=== PATIENT | female | born 2000 | race Caucasian/White ===

== ENCOUNTER 2020-06-25 05:36 | Emergency (ER) | payer BC ==
--- NOTE | 2020-06-25 05:59 | EDM.PDOC ---
ED HPI GENERAL MEDICAL PROBLEM - General Chief Complaint: Respiratory Problem Stated Complaint: SOB/CONGESTION/FEVER Time Seen by Provider: 06/25/20 05:58 Source of Information: Reports: Patient History Limitations: Reports: No Limitations - History of Present Illness INITIAL COMMENTS - FREE TEXT/NARRATIVE: -20 year-old female presents to the ED with a history of sore throat fever and chills starting 9 days ago. Has developed a paroxysmal mildly productive cough. Subjective dyspnea. O2 sats 100% on the monitor. Unable to sleep due to paroxysmal cough and subjective dyspnea overnight. Loss of appetite. Associated mild diarrhea. Loss of sense of taste and smell with nasal congestion. Currently she works as an employee at the [email or web address]. Onset: Sudden Onset Date: 06/23/20 Duration: Day(s):, Constant, Getting Worse Location: Reports: Chest (Accessible minimally productive cough.), Generalized (Neurolyse myalgia and headache.), Other (Mild diarrhea usually 2 times daily. Loss of appetite sense of taste and sense of smell.) Quality: Reports: Ache (Lysed myalgia improved with) Severity: Moderate (Motrin.) Improves with: Reports: Medication (And helps take away fever and body ache.) Worsens with: Reports: Other Context: Denies: Activity, Exercise (Activity.), Lifting, Sick Contact, Trauma, Other Associated Symptoms: Reports: Cough, Fever/Chills, Headaches, Loss of Appetite, Malaise, Shortness of Breath, Weakness, Other ( usually twice daily yellowish in color). Denies: No Other Symptoms, Chest Pain, Diaphoresis, Nausea/Vomiting, Rash, Seizure, Syncope Treatments TAX REPRESENTATIVE: Reports: NSAIDS (Primarily Motrin 600 mg every 6 hours) - Related Data Allergies Allergy/AdvReac Type Severity Reaction Status Date / Time No Known Allergies Allergy Verified 06/25/20 05:47 Home Meds: Home Meds Amphetamine/Dextroamphetamine [Adderall] 10 mg PO DAILY 06/25/20 [History] Hydrocodone/Chlorphen P-Stirex [Hydrocodone-Chlorphen ER Susp] 5 ml PO Q12H PRN #60 ml 06/25/20 [Rx] Ondansetron [Zofran] 4 mg BUCCAL Q6H PRN #8 tab 06/25/20 [Rx] dexAMETHasone [Decadron] 4 mg PO BID #10 tablet 06/25/20 [Rx] Past Medical History - Past Health History Medical/Surgical History: Denies Medical/Surgical History - Past Surgical History HEENT Surgical History: Reports: Tonsillectomy Social & Family History - Tobacco Use Tobacco Use Status *Q: Never Tobacco User Second Hand Smoke Exposure: No - Caffeine Use Caffeine Use: Reports: None - Recreational Drug Use Recreational Drug Use: No - Living Situation & Occupation Living situation: Reports: Single Occupation: Employed ED ROS GENERAL - Review of Systems Review Of Systems: See Below Constitutional: Reports: Fever, Chills, Malaise, Weakness, Fatigue, Decreased Appetite HEENT: Reports: Throat Pain, Other (Nasal congestion.) Respiratory: Reports: Shortness of Breath, Cough (Minimally productive). Denies: Wheezing, Pleuritic Chest Pain, Sputum, Hemoptysis ( cough.), Other Cardiovascular: Reports: Dyspnea on Exertion, Other. Denies: No Symptoms, Chest Pain, Blood Pressure Problem, Claudication Endocrine: Reports: Fatigue (Knee at rest) GI/Abdominal: Reports: Diarrhea (Usually 2 loose diarrhea stools per day. Yellow in color no blood), Decreased Appetite. Denies: Nausea, Stool Incontinence, Vomiting : Reports: No Symptoms Musculoskeletal: Reports: Muscle Pain Skin: Reports: No Symptoms (Generalized myalgia.) Neurological: Reports: Dizziness, Headache Psychiatric: Reports: Other (She has a history of attention deficit disorder with hyperactivity and takes Adderall daily.) Hematologic/Lymphatic: Reports: No Symptoms Immunologic: Reports: No Symptoms ED EXAM, GENERAL - Physical Exam Exam: See Below Exam Limited By: No Limitations General Appearance: Alert, WD/WN, Mild Distress, Other (Which is 36.8 heart rate 91 and sinus respiratory 16 with O2 sats of 99 to 100% room air BP 09/27/1977.) Eye Exam: Bilateral Eye: Normal Inspection, PERRL Ears: Normal TMs Nose: Nasal Drainage, Clear Rhinorrhea Throat/Mouth: Other (Diffuse erythema posterior oropharynx. Tonsils are absent.) Head: Atraumatic, Normocephalic Neck: Normal Inspection, Supple, Non-Tender, Full Range of Motion. No: Carotid Bruit, Lymphadenopathy (L), Lymphadenopathy (R) Respiratory/Chest: Lungs Clear, Normal Breath Sounds, Respiratory Distress (Mild to moderate tachypnea.), Rhonchi (Mild upper lobes anteriorly.), Other (Recurrent paroxysmal). No: Wheezing ( mildly productive sounding cough.) Cardiovascular: Normal Peripheral Pulses, Regular Rate, Rhythm, No Edema, No Gallop, No Murmur, No Rub Peripheral Pulses: 3+: Carotid (L), Carotid (R), Posterior Tibial (L), Posterior Tibial (R), Dorsalis Pedis (L), Dorsalis Pedis (R) GI/Abdominal: Normal Bowel Sounds, Soft, Non-Tender, No Organomegaly, No Abnormal Bruit, No Mass, Pelvis Stable Back Exam: Normal Inspection, Full Range of Motion. No: CVA Tenderness (L), CVA Tenderness (R) Extremities: Normal Inspection, Normal Range of Motion, Non-Tender, No Pedal Edema Neurological: Alert, Oriented, CN II-XII Intact, Normal Cognition Psychiatric: Normal Affect, Normal Mood Skin Exam: Warm, Dry, Intact, Normal Color, No Rash Course - Vital Signs Last Recorded V/S: Last Vital Signs Temp 36.8 C 06/25/20 05:41 Pulse 91 06/25/20 05:41 Resp 16 06/25/20 05:41 BP 129/78 06/25/20 05:41 Pulse Ox 99 06/25/20 05:41 - Orders/Labs/Meds Orders: Active Orders 24 hr Category Date Time Status Chest 1V Frontal [CR] Stat Exams 06/25/20 06:07 Taken CBC WITH AUTO DIFF [HEME] Stat Lab 06/25/20 06:30 Results CORONAVIRUS COVID-19 PCR PHL Stat Lab 06/25/20 06:30 Received Dextrose 5%-Lactated Ringers 1,000 ml Med 06/25/20 06:15 Active IV ASDIRECTED Medication Orders Dextrose/Lactated Ringer's (Dextrose 5%-Lactated Ringers) 1,000 mls @ 999 mls/hr IV ASDIRECTED ANDRAE Last Admin: 06/25/20 06:45 Dose: 999 mls/hr Documented by: RAFAELA Labs: Laboratory Tests 06/25/20 06/25/20 06/25/20 Range/Units 06:30 06:30 06:30 WBC 12.80 H (3.98-10.04) K/mm3 RBC 4.94 (3.98-5.22) M/mm3 Hgb 14.1 (11.2-15.7) gm/dl Hct 43.5 (34.1-44.9) % MCV 88.1 (79.4-94.8) fl MCH 28.5 (25.6-32.2) pg MCHC 32.4 (32.2-35.5) g/dl RDW Std Deviation 42.0 (36.4-46.3) fL Plt Count 333 (182-369) K/mm3 MPV 9.8 (9.4-12.3) fl Neut % (Auto) 55.5 (34.0-71.1) % Lymph % (Auto) 35.3 (19.3-51.7) % [place] % (Auto) 7.7 (4.7-12.5) % Eos % (Auto) 0.7 (0.7-5.8) Baso % (Auto) 0.5 (0.1-1.2) % Neut # (Auto) 7.11 H (1.56-6.13) K/mm3 Lymph # (Auto) 4.52 H (1.18-3.74) K/mm3 [place] # (Auto) 0.98 H (0.24-0.36) K/mm3 Eos # (Auto) 0.09 (0.04-0.36) K/mm3 Baso # (Auto) 0.06 (0.01-0.08) K/mm3 Sodium 143 (136-145) mEq/L Potassium 3.6 (3.5-5.1) mEq/L Chloride 109 H (98-107) mEq/L Carbon Dioxide 18 L (21-32) mEq/L Anion Gap 19.6 H (5-15) BUN 7 (7-18) mg/dL Creatinine 0.8 (0.55-1.02) mg/dL Est Cr Clr Drug Dosing 103.26 mL/min Estimated GFR (MDRD) > 60 (>60) mL/min BUN/Creatinine Ratio 8.8 L (14-18) Glucose 88 (74-106) mg/dL Calcium 8.9 (8.5-10.1) mg/dL Ferritin 42 (8-252) ng/ml Total Bilirubin 0.3 (0.2-1.0) mg/dL AST 14 L (15-37) U/L ALT 27 (14-59) U/L Alkaline Phosphatase 83 (46-116) U/L Lactate Dehydrogenase 140 (81-234) U/L C-Reactive Protein 0.3 (<1.0) mg/dL Total Protein 7.7 (6.4-8.2) g/dl Albumin 4.0 (3.4-5.0) g/dl Globulin 3.7 gm/dL Albumin/Globulin Ratio 1.1 (1-2) Meds: Medications Generic Name Dose Route Start Last Admin Trade Name Freq PRN Reason Stop Dose Admin Dextrose/Lactated Ringer's 1,000 mls @ 999 mls/hr 06/25/20 06:15 06/25/20 06:45 Dextrose 5%-Lactated Ringers IV 999 mls/hr ASDIRECTED ANDRAE Administration Discontinued Medications Generic Name Dose Route Start Last Admin Trade Name Freq PRN Reason Stop Dose Admin Dexamethasone 6 mg 06/25/20 07:47 Dexamethasone IVPUSH 06/25/20 07:48 ONETIME ONE Ondansetron HCl 4 mg 06/25/20 06:37 06/25/20 06:45 Zofran IVPUSH 06/25/20 06:38 4 mg ONETIME ONE Administration - Radiology Interpretation Free Text/Narrative:: 20-year-old female presents to the ED with signs and symptoms of COVID-19 illness with acute onset of nasal congestion, sore throat and loss of taste and sense of smell being 8-9 days ago. Continues to have increasing subjective dyspnea and paroxysmal, very minimally productive cough. Associated loss of appetite and mild diarrhea. Intermittent fever, chills and body aches and headache. Likely that she has COVID-19 illness. Chest x-ray will be performed. IV will be D5 LR at open. Labs ordered as well as a serum ferritin and LDH level and she will have 1 view chest x-ray completed. Coronavirus screen to public health. - Re-Assessments/Exams Free Text/Narrative Re-Assessment/Exam: 06/25/20 06:43 chest x-ray done portably reveals a early infiltrate in the right lower lobe suggestive of developing viral pneumonitis. Normal cardiac silhouette. Free Text/Narrative Re-Assessment/Exam: 06/25/20 06:54 White count is 12.8 with auto differential revealing 55% neutrophils and 35% lymphocytes. Hemoglobin is 14.1 with hematocrit of 43.5. Platelet count normal at 333,000. 06/25/20 07:40 Sodium is 143 with a potassium of 3.6. Chloride 109 with a bicarb of 18 slightly low. Anion gap elevated at 19.6. BUN is 7 with a creatinine of 0.8. GFR is greater than 60. Glucose 88 with a calcium of 8.9. Serum ferritin was normal at 42 total bilirubin 0.3 AST 14 ALT 27. LDH 140. C- reactive protein 0.3 total protein 7.7 with an albumin fraction of 4.0. She will be discharged on dexamethasone 4 mg twice daily for the next 5 days. Cough syrup to be Tussionex 5 mils every 12 hours as needed for cough relief primarily at bedtime. Zofran 4 mg sublingual every 4-6 hours as needed for nausea relief so hopefully should be able to eat. Departure - Departure Time of Disposition: 07:45 Disposition: Home, Self-Care 01 Condition: Fair Clinical Impression: COVID-19 - Discharge Information *PRESCRIPTION DRUG MONITORING PROGRAM REVIEWED*: Not Applicable *COPY OF PRESCRIPTION DRUG MONITORING REPORT IN PATIENT JOO: Not Applicable Prescriptions: dexAMETHasone [Decadron] 4 mg PO BID #10 tablet Hydrocodone/Chlorphen P-Stirex [Hydrocodone-Chlorphen ER Susp] 5 ml PO Q12H PRN #60 ml PRN Reason: cough relief Ondansetron [Zofran] 4 mg BUCCAL Q6H PRN #8 tab PRN Reason: nausea or vomiting Instructions: COVID-19 Frequently Asked Questions, COVID-19: How to Protect Yourself and Others - CDC, Prevent the Spread of COVID-19 if You Are Sick - [facility] Referrals: Sharon Lujan NP [Primary Care Provider] - Forms: ED Department Discharge, ED Return to Work/School Form Additional Instructions: Evaluation in the emergency room this morning in regards to development of upper respiratory tract symptoms with associated sore throat, nasal congestion, loss of sense of taste and smell. Development of paroxysmal minimally productive cough with loss of appetite and mild diarrhea are all symptoms of the COVID-19 illness. COVID-19 screen has been carried out and sent to public health and results will likely be available to you tomorrow. Chest x-ray done this morning did not show any signs of pneumonia at this time. You were treated with intravenous fluids to make sure you were hydrated. You were given Zofran 4 mg intravenously for nausea relief. Dexamethasone 6 mg IV at time of discharge,. Treatment at home is to self quarantine for the next 5 days presuming you have already been ill for 9 days. You are considered contagious to others for at minimum of 10 days after onset of symptoms. Suggest off work until July 01. May use Zofran under the tongue every 4-6 hours if necessary for nausea relief. Cough syrup is to be Tussionex 5 mils every 12 hours as necessary for relief of severe cough. Ideally it should be taken about an hour before going to bed as it takes about an hour to work. Continue Motrin 600 mg every 6 hours if necessary for headache, body ache and/or fever.Suggest no dairy products and no apple or grape juice until diarrhea has resolved. Plenty of fluids such as gatorade/powerade to maintain hydration. Dexamethasone tablet 4mg twice daily for 5 days starting at supper time tonight. ist dose was given IV in the ED. results of your COVID-19 test will tentatively be back tomorrow and you will receive a phone call usually from the emergency department as well as public health. Sepsis Event Note (ED) - Evaluation Sepsis Screening Result: No Definite Risk - Focused Exam Vital Signs: Vital Signs Temp Pulse Resp BP Pulse Ox 06/25/20 05:41 36.8 C 91 16 129/78 99 - My Orders Last 24 Hours: My Active Orders 06/25/20 06:07 Chest 1V Frontal [CR] Stat 06/25/20 06:15 Dextrose 5%-Lactated Ringers 1,000 ml IV ASDIRECTED 06/25/20 06:30 CBC WITH AUTO DIFF [HEME] Stat CORONAVIRUS COVID-19 PCR PHL Stat - Assessment/Plan Last 24 Hours: My Active Orders 06/25/20 06:07 Chest 1V Frontal [CR] Stat 06/25/20 06:15 Dextrose 5%-Lactated Ringers 1,000 ml IV ASDIRECTED 06/25/20 06:30 CBC WITH AUTO DIFF [HEME] Stat CORONAVIRUS COVID-19 PCR PHL Stat
[2020-06-25] MEDS ORDERED: Dextrose 5%-Lactated Ringers 1,000 ML IV SCH (06:15)
[2020-06-25] MEDS ORDERED: Ondansetron 4 MG/2 ML SDV IVPUSH ONE (06:37)
[2020-06-25] MEDS ORDERED: Dexamethasone 10 MG/ML SDV IVPUSH ONE (07:47)
--- NOTE | 2020-06-27 15:12 | CR ---
PROCEDURE INFORMATION: Exam: XR Chest, 1 View Exam date and time: 06/25/2020 6:02 AM Age: 20 years old Clinical indication: Chest pain; Other: Proxymal TECHNIQUE: Imaging protocol: XR of the chest Views: 1 view. COMPARISON: No relevant prior studies available. FINDINGS: Lungs: Unremarkable. No consolidation. Pleural space: Unremarkable. No pleural effusion. No pneumothorax. Heart/Mediastinum: Unremarkable. No cardiomegaly. Bones/joints: Unremarkable. IMPRESSION: No acute findings. Thank you for allowing us to participate in the care of your patient. Dictated and Authenticated by: Ant Corea MD 06/25/2020 7:41 AM Central Time ([place] & [place]) NATALY
== END 2020-06-25 08:05 | disposition home or self-care (01) ==
LOC: JD.ED 05:36
DX: U07.1 COVID-19 (principal); R79.89 Other specified abnormal findings of blood chemistry; Z79.899 Other long term (current) drug therapy
CPT/HCPCS: 36415; 71045; 80053; 82728; 83615; 85025; 86140; 87635; 96374; 96375; 99285; J1100; J2405; J7121; 99284; U0002

== ENCOUNTER 2021-07-01 17:42 | Inpatient (IN) | payer BC ==
[2021-07-01] MEDS ORDERED: Sodium Chloride 0.9% 10 ML Syringe FLUSH PRN (18:13)
[2021-07-01] MEDS ORDERED: Sodium Chloride 0.9% 1,000 ML IV ONE (18:13)
[2021-07-01] MEDS ORDERED: Ondansetron 4 MG/2 ML SDV IVPUSH ONE (18:13)
[2021-07-01] MEDS ORDERED: HYDROmorphone 0.5 MG/0.5 ML Syringe IVPUSH ONE ×2 (18:13→21:05)
--- NOTE | 2021-07-01 18:22 | EDM.PDOC ---
ED HPI GENERAL MEDICAL PROBLEM - General Chief Complaint: Abdominal Pain Stated Complaint: ABDOMINAL PAIN Time Seen by Provider: 07/01/21 17:55 Source of Information: Reports: Patient History Limitations: Reports: No Limitations - History of Present Illness INITIAL COMMENTS - FREE TEXT/NARRATIVE: 21-year-old female presents the emergency department today with complaints of right flank pain. Patient states that approximately 2 weeks ago she was seen at the clinic and treated for UTI. She states symptoms initially resolved however have since returned over the course of the past week. She states urinary frequency and burning with voiding. She states that flank pain started about a week ago but has progressively worsened. States that the pain radiates into her right groin. She states she has had subjective fever, chills, nausea without vomiting and has not had any diarrhea. She denies any other significant past medical history. Right Middle Abdomen Pain Score (Numeric/FACES): 10 - Related Data Allergies Allergy/AdvReac Type Severity Reaction Status Date / Time No Known Allergies Allergy Verified 07/01/21 18:05 Home Meds: Home Meds Etonogestrel [Nexplanon] 68 mg IMPLANT ASDIRECTED 07/01/21 [History] Amphetamine/Dextroamphetamine [Adderall XR] 30 mg PO BID 07/02/21 [History] Past Medical History - Past Health History Medical/Surgical History: Denies Medical/Surgical History - Past Surgical History HEENT Surgical History: Reports: Tonsillectomy Social & Family History - Tobacco Use Tobacco Use Status *Q: Never Tobacco User - Caffeine Use Caffeine Use: Reports: None - Living Situation & Occupation Living situation: Reports: Single Occupation: Employed ED ROS GENERAL - Review of Systems Review Of Systems: Comprehensive ROS is negative, except as noted in HPI. ED EXAM, RENAL/ - Physical Exam Exam: See Below Exam Limited By: No Limitations General Appearance: Alert, WD/WN, Moderate Distress Ears: Normal External Exam, Hearing Grossly Normal Nose: Normal Inspection Throat/Mouth: Normal Inspection, Normal Lips, Normal Voice, No Airway Compromise Head: Atraumatic Neck: Normal Inspection, Supple Respiratory/Chest: No Respiratory Distress, Lungs Clear, Normal Breath Sounds, No Accessory Muscle Use, Chest Non-Tender Cardiovascular: Normal Peripheral Pulses, Regular Rate, Rhythm, No Edema, No Murmur GI/Abdominal: Normal Bowel Sounds, Soft, No Distention. No: Tender (Right upper and lower quadrant tenderness) (Female) Exam: Deferred Rectal (Female) Exam: Deferred Back Exam: Normal Inspection Extremities: Normal Inspection Neurological: Alert, Oriented, Normal Cognition Psychiatric: Normal Affect, Normal Mood Skin Exam: Warm, Dry, Intact, Normal Color, No Rash Lymphatic: No Adenopathy Course - Vital Signs Text/Narrative:: As stated above patient presents with right flank pain with radiation into her right groin. Recent UTI treated with antibiotics. Upon exam, patient is hunched over on the right side in the position. When she straightens onto her back she is splinting her right side of her abdomen. She does have right CVA tenderness on exam. Will obtain lab studies to include a urinalysis with micro and culture if indicated, urine , CBC, CMP, magnesium, C-reactive protein. Once I have the results of the urine test back, if negative will do a CT of the abdomen and pelvis without contrast to rule out kidney stone. Last Recorded V/S: Last Vital Signs Temp 98.1 F 07/02/21 21:06 Pulse 67 07/02/21 21:06 Resp 16 07/02/21 21:06 BP 117/70 07/02/21 21:06 Pulse Ox 100 07/02/21 21:06 - Orders/Labs/Meds Orders: Active Orders 24 hr Category Date Time Status Admission Status [Patient Status] [ADT] Routine ADT 07/02/21 11:06 Active Activity as Tolerated [RC] BID Care 07/01/21 22:34 Active Regular Diet [DIET] Diet 07/02/21 Breakfast Active Acetaminophen/HYDROcodone [[place] 325-10 MG] Med 07/02/21 10:16 Active 1 tab PO Q4H PRN Ketorolac [Toradol] Med 07/01/21 22:33 Active 30 mg IVPUSH Q6H PRN Ondansetron [Zofran] Med 07/01/21 22:32 Active 4 mg IVPUSH Q6H PRN Code Status [Resuscitation Status] Routine Resus Stat 07/01/21 22:34 Ordered Medication Orders Hydrocodone Bitart/Acetaminophen (Acetaminophen/Hydrocodone 325-10 Mg Tab) 1 tab PO Q4H PRN PRN Reason: Abdominal Pain Last Admin: 07/02/21 21:45 Dose: 1 tab Documented by: Admin: 07/02/21 16:05 Dose: 1 tab Documented by: Admin: 07/02/21 10:34 Dose: 1 tab Documented by: CROW Ceftriaxone Sodium 1 gm/ (Sodium Chloride) 100 mls @ 200 mls/hr IV Q24H [facility] Last Admin: 07/02/21 18:45 Dose: 200 mls/hr Documented by: Infusion: 07/01/21 20:12 Dose: 200 mls/hr Documented by: Admin: 07/01/21 19:42 Dose: 200 mls/hr Documented by: REGINA Sodium Chloride (Normal Saline) 1,000 mls @ 75 mls/hr IV ASDIRECTED [facility] Last Admin: 07/02/21 17:36 Dose: 75 mls/hr Documented by: SANDRA Ketorolac Tromethamine (Ketorolac 30 Mg/Ml Sdv) 30 mg IVPUSH Q6H PRN PRN Reason: Pain Stop: 07/06/21 22:34 Last Admin: 07/02/21 18:43 Dose: 30 mg Documented by: Admin: 07/02/21 12:14 Dose: 30 mg Documented by: Admin: 07/02/21 05:42 Dose: 30 mg Documented by: Admin: 07/01/21 22:47 Dose: 30 mg Documented by: CHEIKH Ondansetron HCl (Ondansetron 4 Mg/2 Ml Sdv) 4 mg IVPUSH Q6H PRN PRN Reason: Nausea/Vomiting Last Admin: 07/02/21 17:00 Dose: 4 mg Documented by: Admin: 07/02/21 09:25 Dose: 4 mg Documented by: Admin: 07/02/21 01:44 Dose: 4 mg Documented by: ANNABELLE Sodium Chloride (Sodium Chloride 0.9% 10 Ml Syringe) 10 ml FLUSH ASDIRECTED PRN PRN Reason: Keep Vein Open Last Admin: 07/01/21 19:43 Dose: 10 ml Documented by: REGINA Labs: Laboratory Tests 07/01/21 07/01/21 07/01/21 Range/Units 18:20 18:20 18:25 WBC 19.58 H (3.98-10.04) K/mm3 RBC 5.48 H (3.98-5.22) M/mm3 Hgb 15.7 D (11.2-15.7) gm/dl Hct 48.8 H (34.1-44.9) % MCV 89.1 (79.4-94.8) fl MCH 28.6 (25.6-32.2) pg MCHC 32.2 (32.2-35.5) g/dl RDW Std Deviation 44.0 (36.4-46.3) fL Plt Count 333 (182-369) K/mm3 MPV 9.8 (9.4-12.3) fl Neut % (Auto) 77.5 H (34.0-71.1) % Lymph % (Auto) 14.7 L (19.3-51.7) % [place] % (Auto) 7.0 (4.7-12.5) % Eos % (Auto) 0.1 L (0.7-5.8) Baso % (Auto) 0.3 (0.1-1.2) % Neut # (Auto) 15.18 H (1.56-6.13) K/mm3 Lymph # (Auto) 2.87 (1.18-3.74) K/mm3 [place] # (Auto) 1.38 H (0.24-0.36) K/mm3 Eos # (Auto) 0.02 L (0.04-0.36) K/mm3 Baso # (Auto) 0.05 (0.01-0.08) K/mm3 Sodium (136-145) mEq/L Potassium (3.5-5.1) mEq/L Chloride (98-107) mEq/L Carbon Dioxide (21-32) mEq/L Anion Gap (5-15) BUN (7-18) mg/dL Creatinine (0.55-1.02) mg/dL Est Cr Clr Drug Dosing Estimated GFR (MDRD) (>60) mL/min BUN/Creatinine Ratio (14-18) Glucose (70-99) mg/dL Calcium (8.5-10.1) mg/dL Magnesium (1.8-2.4) mg/dL Total Bilirubin (0.2-1.0) mg/dL AST (15-37) U/L ALT (14-59) U/L Alkaline Phosphatase (46-116) U/L C-Reactive Protein (<1.0) mg/dL Total Protein (6.4-8.2) g/dl Albumin (3.4-5.0) g/dl Globulin gm/dL Albumin/Globulin Ratio (1-2) Procalcitonin ng/mL Urine Color Yellow (Yellow) Urine Appearance Cloudy H (Clear) Urine pH 7.0 (5.0-8.0) Ur Specific [place] 1.025 (1.005-1.030) Urine Protein 3+ H (Negative) Urine Glucose (UA) Negative (Negative) Urine Ketones Negative (Negative) Urine Occult Blood 3+ H (Negative) Urine Nitrite Negative (Negative) Urine Bilirubin Negative (Negative) Urine Urobilinogen 0.2 (0.2-1.0) Ur Leukocyte Esterase 2+ H (Negative) Urine RBC 40-50 H (0-5) /hpf Urine WBC >100 H (0-5) /hpf Ur Squamous Epith Cells 0-5 (0-5) /hpf Urine Bacteria Moderate H (FEW) /hpf Urine Mucus Few (FEW) /hpf Urine HCG, Qual Negative (NEGATIVE) SARS-CoV-2 RNA (NATHALIE) (NEGATIVE) 07/01/21 07/01/21 07/02/21 Range/Units 18:25 19:55 06:03 WBC 9.12 (3.98-10.04) K/mm3 RBC 4.83 (3.98-5.22) M/mm3 Hgb 14.0 D (11.2-15.7) gm/dl Hct 43.4 (34.1-44.9) % MCV 89.9 (79.4-94.8) fl MCH 29.0 (25.6-32.2) pg MCHC 32.3 (32.2-35.5) g/dl RDW Std Deviation 44.3 (36.4-46.3) fL Plt Count 292 (182-369) K/mm3 MPV 9.8 (9.4-12.3) fl Neut % (Auto) 61.0 (34.0-71.1) % Lymph % (Auto) 28.3 (19.3-51.7) % [place] % (Auto) 9.5 (4.7-12.5) % Eos % (Auto) 0.7 (0.7-5.8) Baso % (Auto) 0.3 (0.1-1.2) % Neut # (Auto) 5.56 (1.56-6.13) K/mm3 Lymph # (Auto) 2.58 (1.18-3.74) K/mm3 [place] # (Auto) 0.87 H (0.24-0.36) K/mm3 Eos # (Auto) 0.06 (0.04-0.36) K/mm3 Baso # (Auto) 0.03 (0.01-0.08) K/mm3 Sodium 137 (136-145) mEq/L Potassium 4.2 (3.5-5.1) mEq/L Chloride 101 (98-107) mEq/L Carbon Dioxide 26 (21-32) mEq/L Anion Gap 14.2 (5-15) BUN 8 (7-18) mg/dL Creatinine 0.8 (0.55-1.02) mg/dL Est Cr Clr Drug Dosing TNP Estimated GFR (MDRD) > 60 (>60) mL/min BUN/Creatinine Ratio 10.0 L (14-18) Glucose 92 (70-99) mg/dL Calcium 9.6 (8.5-10.1) mg/dL Magnesium 2.0 (1.8-2.4) mg/dL Total Bilirubin 0.4 (0.2-1.0) mg/dL AST 20 (15-37) U/L ALT 27 (14-59) U/L Alkaline Phosphatase 80 (46-116) U/L C-Reactive Protein <0.2 (<1.0) mg/dL Total Protein 8.6 H (6.4-8.2) g/dl Albumin 4.7 (3.4-5.0) g/dl Globulin 3.9 gm/dL Albumin/Globulin Ratio 1.2 (1-2) Procalcitonin ng/mL Urine Color (Yellow) Urine Appearance (Clear) Urine pH (5.0-8.0) Ur Specific [place] (1.005-1.030) Urine Protein (Negative) Urine Glucose (UA) (Negative) Urine Ketones (Negative) Urine Occult Blood (Negative) Urine Nitrite (Negative) Urine Bilirubin (Negative) Urine Urobilinogen (0.2-1.0) Ur Leukocyte Esterase (Negative) Urine RBC (0-5) /hpf Urine WBC (0-5) /hpf Ur Squamous Epith Cells (0-5) /hpf Urine Bacteria (FEW) /hpf Urine Mucus (FEW) /hpf Urine HCG, Qual (NEGATIVE) SARS-CoV-2 RNA (NATHALIE) Negative (NEGATIVE) 07/02/21 07/02/21 Range/Units 06:03 06:03 WBC (3.98-10.04) K/mm3 RBC (3.98-5.22) M/mm3 Hgb (11.2-15.7) gm/dl Hct (34.1-44.9) % MCV (79.4-94.8) fl MCH (25.6-32.2) pg MCHC (32.2-35.5) g/dl RDW Std Deviation (36.4-46.3) fL Plt Count (182-369) K/mm3 MPV (9.4-12.3) fl Neut % (Auto) (34.0-71.1) % Lymph % (Auto) (19.3-51.7) % [place] % (Auto) (4.7-12.5) % Eos % (Auto) (0.7-5.8) Baso % (Auto) (0.1-1.2) % Neut # (Auto) (1.56-6.13) K/mm3 Lymph # (Auto) (1.18-3.74) K/mm3 [place] # (Auto) (0.24-0.36) K/mm3 Eos # (Auto) (0.04-0.36) K/mm3 Baso # (Auto) (0.01-0.08) K/mm3 Sodium 141 (136-145) mEq/L Potassium 3.6 (3.5-5.1) mEq/L Chloride 106 (98-107) mEq/L Carbon Dioxide 24 (21-32) mEq/L Anion Gap 14.6 (5-15) BUN 6 L (7-18) mg/dL Creatinine 0.8 (0.55-1.02) mg/dL Est Cr Clr Drug Dosing 98.41 Estimated GFR (MDRD) > 60 (>60) mL/min BUN/Creatinine Ratio 7.5 L (14-18) Glucose 91 (70-99) mg/dL Calcium 8.6 (8.5-10.1) mg/dL Magnesium 2.0 (1.8-2.4) mg/dL Total Bilirubin 0.5 (0.2-1.0) mg/dL AST 11 L (15-37) U/L ALT 20 (14-59) U/L Alkaline Phosphatase 66 (46-116) U/L C-Reactive Protein (<1.0) mg/dL Total Protein 6.7 (6.4-8.2) g/dl Albumin 3.5 (3.4-5.0) g/dl Globulin 3.2 gm/dL Albumin/Globulin Ratio 1.1 (1-2) Procalcitonin <0.05 ng/mL Urine Color (Yellow) Urine Appearance (Clear) Urine pH (5.0-8.0) Ur Specific [place] (1.005-1.030) Urine Protein (Negative) Urine Glucose (UA) (Negative) Urine Ketones (Negative) Urine Occult Blood (Negative) Urine Nitrite (Negative) Urine Bilirubin (Negative) Urine Urobilinogen (0.2-1.0) Ur Leukocyte Esterase (Negative) Urine RBC (0-5) /hpf Urine WBC (0-5) /hpf Ur Squamous Epith Cells (0-5) /hpf Urine Bacteria (FEW) /hpf Urine Mucus (FEW) /hpf Urine HCG, Qual (NEGATIVE) SARS-CoV-2 RNA (NATHALIE) (NEGATIVE) Meds: Medications Generic Name Dose Route Start Last Admin Trade Name Freq PRN Reason Stop Dose Admin Hydrocodone Bitart/Acetaminophen 1 tab 07/02/21 10:16 07/02/21 21:45 Acetaminophen/Hydrocodone 325-10 Mg Tab PO 1 tab Q4H PRN Administration Abdominal Pain Ceftriaxone Sodium 1 gm/ 100 mls @ 200 mls/hr 07/01/21 19:30 07/02/21 18:45 Sodium Chloride IV 200 mls/hr Q24H ANDRAE Administration Sodium Chloride 1,000 mls @ 75 mls/hr 07/02/21 17:30 07/02/21 17:36 Normal Saline IV 75 mls/hr ASDIRECTED ANDRAE Administration Ketorolac Tromethamine 30 mg 07/01/21 22:33 07/02/21 18:43 Ketorolac 30 Mg/Ml Sdv IVPUSH 07/06/21 22:34 30 mg Q6H PRN Administration Pain Ondansetron HCl 4 mg 07/01/21 22:32 07/02/21 17:00 Ondansetron 4 Mg/2 Ml Sdv IVPUSH 4 mg Q6H PRN Administration Nausea/Vomiting Sodium Chloride 10 ml 07/01/21 18:13 07/01/21 19:43 Sodium Chloride 0.9% 10 Ml Syringe FLUSH 10 ml ASDIRECTED PRN Administration Keep Vein Open Discontinued Medications Generic Name Dose Route Start Last Admin Trade Name Freq PRN Reason Stop Dose Admin Hydromorphone HCl 0.5 mg 07/01/21 18:13 07/01/21 19:42 Hydromorphone 0.5 Mg/0.5 Ml Syringe IVPUSH 07/01/21 18:14 0.5 mg ONETIME ONE Administration Hydromorphone HCl 0.5 mg 07/01/21 21:05 07/01/21 21:13 Hydromorphone 0.5 Mg/0.5 Ml Syringe IVPUSH 07/01/21 21:06 0.5 mg ONETIME ONE Administration Hydromorphone HCl 0.25 mg 07/01/21 22:33 07/02/21 05:43 Hydromorphone 0.5 Mg/0.5 Ml Syringe IVPUSH 0.25 mg Q2H PRN Administration Pain Sodium Chloride 1,000 mls @ 999 mls/hr 07/01/21 18:13 07/01/21 19:40 Normal Saline IV 07/01/21 19:13 999 mls/hr ONETIME ONE Administration Sodium Chloride 1,000 mls @ 75 mls/hr 07/01/21 22:45 07/01/21 23:06 Normal Saline IV 75 mls/hr ASDIRECTED ANDRAE Administration Ondansetron HCl 4 mg 07/01/21 18:13 07/01/21 19:43 Ondansetron 4 Mg/2 Ml Sdv IVPUSH 07/01/21 18:14 4 mg ONETIME ONE Administration - Re-Assessments/Exams Free Text/Narrative Re-Assessment/Exam: 07/01/21 20:[address] of the abdomen and pelvis: 1. Mild inflammatory change around the right renal pelvis. Differential includes infection as well as previous ureteral obstruction which is not appreciated on current study and could represent a ureteral stone that has passed. Please correlate with the patient's symptoms. 2. No other acute abnormality is appreciated 07/01/21 20:07 Hematology reveals a WBC of 19.58, hemoglobin 15.7, hematocrit 48.8, platelet count 333 Chemistry reveals a sodium of 137, potassium 4.2, anion gap 14.2, BUN 8, creatinine 0.8, glucose 92, magnesium 2.0, C-reactive protein less than 0.2 Urinalysis reveals 3+ protein, 3+ blood, 2+ leukocyte Estrace, urine WBC greater than 100, urine RBC 40-50, moderate bacteria I have ordered blood cultures on this patient. I do feel she needs to be admitted to the hospital for antibiotic treatment due to pyelonephritis. I have also ordered blood cultures to be received prior to receiving 1 g of Rocephin IV. I did discuss this case with the hospitalist, Dr. Fernando and he has accepted to admit her onto his service. Covid swab is pending. Departure - Departure Time of Disposition: 22:44 Disposition: Refer to Observation Condition: Good Clinical Impression: Acute pyelonephritis - Discharge Information Sepsis Event Note (ED) - Evaluation Sepsis Screening Result: No Definite Risk
--- NOTE | 2021-07-01 19:34 | CT ---
CT abdomen and pelvis Technique: Multiple axial sections were obtained from above the dome of the diaphragm inferiorly through the pubic symphysis. Intravenous contrast was not utilized. Study has been performed as a ureteral stone protocol. Reconstructed coronal and sagittal images were obtained. Comparison: No prior CT abdomen or pelvis study is available. Findings: Slight inflammatory change is seen around the right renal pelvis. No ureteral calcifications are seen to indicate a calculus. No bladder calculi are seen. No renal calculi are seen. Visualized lung bases show nothing acute. Noncontrast appearance of the liver and spleen appear within normal limits. Adrenal glands show no nodule. Pancreas shows no discrete abnormality. Gallbladder contains no calcified gallstones. Aorta shows no aneurysm. No retroperitoneal adenopathy or mesenteric abnormalities are seen. Cyst is noted within the right ovary which measures 2.3 cm and is felt to be physiologic. No pelvic mass or adenopathy is seen. Appendix is seen and appears to be normal in size. Bone window settings were reviewed which appear within normal limits for the patient's age. Impression: 1. Mild inflammatory change around the right renal pelvis. Differential includes infection as well as previous ureteral obstruction which is not appreciated on current study and could represent a ureteral stone that has passed. Please correlate with the patient's symptoms. 2. No other acute abnormality is appreciated. Diagnostic code #3
[2021-07-01] MEDS: cefTRIAXone 1 GM in Sodium Chloride 0.9% 100 ML IV SCH (19:42)
[2021-07-01] MEDS ORDERED: Sodium Chloride 0.9% 1,000 ML IV SCH (22:45)
[2021-07-01] MEDS: Ketorolac 30 MG/ML SDV IVPUSH PRN (22:47)
[2021-07-01] MEDS: HYDROmorphone 0.5 MG/0.5 ML Syringe IVPUSH PRN (23:00)
[2021-07-02] MEDS: HYDROmorphone 0.5 MG/0.5 ML Syringe IVPUSH PRN ×2 (00:48→05:43)
[2021-07-02] MEDS: Ondansetron 4 MG/2 ML SDV IVPUSH PRN ×3 (01:44→17:00)
[2021-07-02] MEDS: Ketorolac 30 MG/ML SDV IVPUSH PRN ×3 (05:42→18:43)
--- NOTE | 2021-07-02 09:35 | PCM.HP.2 ---
<MindiMahogany Rodney - Last Filed: 07/02/21 10:18> H&P History of Present Illness - General Date of Service: 07/02/21 Admit Problem/Dx: Admission Diagnosis/Problem Admission Diagnosis/Problem Pyelonephritis Source of Information: Patient History Limitations: Reports: No Limitations - History of Present Illness Initial Comments - Free Text/Narative: Bia is a 21yo white female who presented to the ED on the evening of 07/01/2021 due to right back and abdominal pain. This pain started about 10 days ago and became "unbearable" which prompted the ED visit. Associated symptoms include hematuria, dysuria, fever 7 and 2 days ago, chills, myalgias, nausea, diarrhea, and decreased appetite. She is currently experiencing nausea and right abdomen/back pain. She denies any headache, SOB, chest pain, or rash. She describes a cramping character to the pain which is worse with breathing and touching the area. She has tried ibuprofen and Azo tablets without relief. test was negative and she still has her appendix. She has a nexplanon for contraception. She had a UTI diagnosed 06/01/2021 for which she was prescribed macrobid. She gets approximately 4 UTIs per year. She denies any history of smoking or heavy alcohol use. Right Middle Abdomen Pain Score (Numeric/FACES): 10 - Related Data Allergies/Adverse Reactions: Allergies Allergy/AdvReac Type Severity Reaction Status Date / Time No Known Allergies Allergy Verified 07/01/21 18:05 Home Medications: Home Meds Etonogestrel [Nexplanon] 68 mg IMPLANT ASDIRECTED 07/01/21 [History] Amphetamine/Dextroamphetamine [Adderall XR] 30 mg PO BID 07/02/21 [History] Past Medical History - Past Health History Medical/Surgical History: Denies Medical/Surgical History Genitourinary History: Reports: Pyelonephritis, UTI, Recurrent Musculoskeletal History: Reports: Other (See Below) Other Musculoskeletal History: dislocated rt shoulder Psychiatric History: Reports: ADHD - Infectious Disease History Infectious Disease History: Reports: Novel Coronavirus - Past Surgical History HEENT Surgical History: Reports: Tonsillectomy Female Surgical History: Reports: None Social & Family History - Tobacco Use Tobacco Use Status *Q: Never Tobacco User - Caffeine Use Caffeine Use: Reports: Coffee - Recreational Drug Use Recreational Drug Use: No - Living Situation & Occupation Living situation: Reports: Single Occupation: Employed H&P Review of Systems - Review of Systems: Review Of Systems: Comprehensive ROS is negative, except as noted in HPI. Exam - Exam Exam: See Below - Vital Signs Vital Signs: Last Vital Signs Temp 97.5 F 07/02/21 09:12 Pulse 56 L 07/02/21 09:12 Resp 14 07/02/21 09:12 BP 110/65 07/02/21 09:12 Pulse Ox 100 07/02/21 09:12 Weight: 148 lb - Exam General: Alert, Oriented, Cooperative HEENT: Conjunctiva Clear, EOMI, Hearing Intact, Mucosa Moist & Ball Neck: Supple, Trachea Midline, 2 Lungs: Clear to Auscultation, Normal Respiratory Effort Cardiovascular: Regular Rate, Regular Rhythm, Normal S1, Normal S2 GI/Abdominal Exam: Normal Bowel Sounds, Soft, No Organomegaly, No Distention, No Mass, Tender (to light and deep palpation over the RUQ adn RLQ), Other (no rebound tenderness, negative Rovsing's sign, positive psoas sign) Back Exam: Normal Inspection, Full Range of Motion, CVA Tenderness (R) Extremities: Normal Inspection, Normal Range of Motion, Non-Tender, No Pedal Edema, Normal Capillary Refill Skin: Warm, Dry, Intact Neurological: Cranial Nerves Intact Neuro Extensive - Mental Status: Alert, Oriented x3, Normal Mood/Affect, Normal Cognition Neuro Extensive - Motor, Sensory, Reflexes: CN II-XII Intact, Normal Gait Psychiatric: Alert, Normal Affect, Normal Mood - Patient Data Lab Results Last 24 hrs: Laboratory Results - last 24 hr 07/01/21 07/01/21 07/01/21 Range/Units 18:20 18:20 18:25 WBC 19.58 H (3.98-10.04) K/mm3 RBC 5.48 H (3.98-5.22) M/mm3 Hgb 15.7 D (11.2-15.7) gm/dl Hct 48.8 H (34.1-44.9) % MCV 89.1 (79.4-94.8) fl MCH 28.6 (25.6-32.2) pg MCHC 32.2 (32.2-35.5) g/dl RDW Std Deviation 44.0 (36.4-46.3) fL Plt Count 333 (182-369) K/mm3 MPV 9.8 (9.4-12.3) fl Neut % (Auto) 77.5 H (34.0-71.1) % Lymph % (Auto) 14.7 L (19.3-51.7) % [place] % (Auto) 7.0 (4.7-12.5) % Eos % (Auto) 0.1 L (0.7-5.8) Baso % (Auto) 0.3 (0.1-1.2) % Neut # (Auto) 15.18 H (1.56-6.13) K/mm3 Lymph # (Auto) 2.87 (1.18-3.74) K/mm3 [place] # (Auto) 1.38 H (0.24-0.36) K/mm3 Eos # (Auto) 0.02 L (0.04-0.36) K/mm3 Baso # (Auto) 0.05 (0.01-0.08) K/mm3 Sodium (136-145) mEq/L Potassium (3.5-5.1) mEq/L Chloride (98-107) mEq/L Carbon Dioxide (21-32) mEq/L Anion Gap (5-15) BUN (7-18) mg/dL Creatinine (0.55-1.02) mg/dL Est Cr Clr Drug Dosing Estimated GFR (MDRD) (>60) mL/min BUN/Creatinine Ratio (14-18) Glucose (70-99) mg/dL Calcium (8.5-10.1) mg/dL Magnesium (1.8-2.4) mg/dL Total Bilirubin (0.2-1.0) mg/dL AST (15-37) U/L ALT (14-59) U/L Alkaline Phosphatase (46-116) U/L C-Reactive Protein (<1.0) mg/dL Total Protein (6.4-8.2) g/dl Albumin (3.4-5.0) g/dl Globulin gm/dL Albumin/Globulin Ratio (1-2) Urine Color Yellow (Yellow) Urine Appearance Cloudy H (Clear) Urine pH 7.0 (5.0-8.0) Ur Specific [place] 1.025 (1.005-1.030) Urine Protein 3+ H (Negative) Urine Glucose (UA) Negative (Negative) Urine Ketones Negative (Negative) Urine Occult Blood 3+ H (Negative) Urine Nitrite Negative (Negative) Urine Bilirubin Negative (Negative) Urine Urobilinogen 0.2 (0.2-1.0) Ur Leukocyte Esterase 2+ H (Negative) Urine RBC 40-50 H (0-5) /hpf Urine WBC >100 H (0-5) /hpf Ur Squamous Epith Cells 0-5 (0-5) /hpf Urine Bacteria Moderate H (FEW) /hpf Urine Mucus Few (FEW) /hpf Urine HCG, Qual Negative (NEGATIVE) SARS-CoV-2 RNA (NATHALIE) (NEGATIVE) 07/01/21 07/01/21 07/02/21 Range/Units 18:25 19:55 06:03 WBC 9.12 (3.98-10.04) K/mm3 RBC 4.83 (3.98-5.22) M/mm3 Hgb 14.0 D (11.2-15.7) gm/dl Hct 43.4 (34.1-44.9) % MCV 89.9 (79.4-94.8) fl MCH 29.0 (25.6-32.2) pg MCHC 32.3 (32.2-35.5) g/dl RDW Std Deviation 44.3 (36.4-46.3) fL Plt Count 292 (182-369) K/mm3 MPV 9.8 (9.4-12.3) fl Neut % (Auto) 61.0 (34.0-71.1) % Lymph % (Auto) 28.3 (19.3-51.7) % [place] % (Auto) 9.5 (4.7-12.5) % Eos % (Auto) 0.7 (0.7-5.8) Baso % (Auto) 0.3 (0.1-1.2) % Neut # (Auto) 5.56 (1.56-6.13) K/mm3 Lymph # (Auto) 2.58 (1.18-3.74) K/mm3 [place] # (Auto) 0.87 H (0.24-0.36) K/mm3 Eos # (Auto) 0.06 (0.04-0.36) K/mm3 Baso # (Auto) 0.03 (0.01-0.08) K/mm3 Sodium 137 (136-145) mEq/L Potassium 4.2 (3.5-5.1) mEq/L Chloride 101 (98-107) mEq/L Carbon Dioxide 26 (21-32) mEq/L Anion Gap 14.2 (5-15) BUN 8 (7-18) mg/dL Creatinine 0.8 (0.55-1.02) mg/dL Est Cr Clr Drug Dosing TNP Estimated GFR (MDRD) > 60 (>60) mL/min BUN/Creatinine Ratio 10.0 L (14-18) Glucose 92 (70-99) mg/dL Calcium 9.6 (8.5-10.1) mg/dL Magnesium 2.0 (1.8-2.4) mg/dL Total Bilirubin 0.4 (0.2-1.0) mg/dL AST 20 (15-37) U/L ALT 27 (14-59) U/L Alkaline Phosphatase 80 (46-116) U/L C-Reactive Protein <0.2 (<1.0) mg/dL Total Protein 8.6 H (6.4-8.2) g/dl Albumin 4.7 (3.4-5.0) g/dl Globulin 3.9 gm/dL Albumin/Globulin Ratio 1.2 (1-2) Urine Color (Yellow) Urine Appearance (Clear) Urine pH (5.0-8.0) Ur Specific [place] (1.005-1.030) Urine Protein (Negative) Urine Glucose (UA) (Negative) Urine Ketones (Negative) Urine Occult Blood (Negative) Urine Nitrite (Negative) Urine Bilirubin (Negative) Urine Urobilinogen (0.2-1.0) Ur Leukocyte Esterase (Negative) Urine RBC (0-5) /hpf Urine WBC (0-5) /hpf Ur Squamous Epith Cells (0-5) /hpf Urine Bacteria (FEW) /hpf Urine Mucus (FEW) /hpf Urine HCG, Qual (NEGATIVE) SARS-CoV-2 RNA (NATHALIE) Negative (NEGATIVE) 07/02/21 Range/Units 06:03 WBC (3.98-10.04) K/mm3 RBC (3.98-5.22) M/mm3 Hgb (11.2-15.7) gm/dl Hct (34.1-44.9) % MCV (79.4-94.8) fl MCH (25.6-32.2) pg MCHC (32.2-35.5) g/dl RDW Std Deviation (36.4-46.3) fL Plt Count (182-369) K/mm3 MPV (9.4-12.3) fl Neut % (Auto) (34.0-71.1) % Lymph % (Auto) (19.3-51.7) % [place] % (Auto) (4.7-12.5) % Eos % (Auto) (0.7-5.8) Baso % (Auto) (0.1-1.2) % Neut # (Auto) (1.56-6.13) K/mm3 Lymph # (Auto) (1.18-3.74) K/mm3 [place] # (Auto) (0.24-0.36) K/mm3 Eos # (Auto) (0.04-0.36) K/mm3 Baso # (Auto) (0.01-0.08) K/mm3 Sodium 141 (136-145) mEq/L Potassium 3.6 (3.5-5.1) mEq/L Chloride 106 (98-107) mEq/L Carbon Dioxide 24 (21-32) mEq/L Anion Gap 14.6 (5-15) BUN 6 L (7-18) mg/dL Creatinine 0.8 (0.55-1.02) mg/dL Est Cr Clr Drug Dosing 98.41 Estimated GFR (MDRD) > 60 (>60) mL/min BUN/Creatinine Ratio 7.5 L (14-18) Glucose 91 (70-99) mg/dL Calcium 8.6 (8.5-10.1) mg/dL Magnesium 2.0 (1.8-2.4) mg/dL Total Bilirubin 0.5 (0.2-1.0) mg/dL AST 11 L (15-37) U/L ALT 20 (14-59) U/L Alkaline Phosphatase 66 (46-116) U/L C-Reactive Protein (<1.0) mg/dL Total Protein 6.7 (6.4-8.2) g/dl Albumin 3.5 (3.4-5.0) g/dl Globulin 3.2 gm/dL Albumin/Globulin Ratio 1.1 (1-2) Urine Color (Yellow) Urine Appearance (Clear) Urine pH (5.0-8.0) Ur Specific [place] (1.005-1.030) Urine Protein (Negative) Urine Glucose (UA) (Negative) Urine Ketones (Negative) Urine Occult Blood (Negative) Urine Nitrite (Negative) Urine Bilirubin (Negative) Urine Urobilinogen (0.2-1.0) Ur Leukocyte Esterase (Negative) Urine RBC (0-5) /hpf Urine WBC (0-5) /hpf Ur Squamous Epith Cells (0-5) /hpf Urine Bacteria (FEW) /hpf Urine Mucus (FEW) /hpf Urine HCG, Qual (NEGATIVE) SARS-CoV-2 RNA (NATHALIE) (NEGATIVE) Result Diagrams: 07/02/21 06:03 07/02/21 06:03 Sepsis Event Note - Evaluation Sepsis Screening Result: No Definite Risk - Focused Exam Vital Signs: Vital Signs Temp Pulse Pulse Resp BP BP Pulse Ox 07/02/21 09:12 97.5 F 56 L 14 110/65 100 07/02/21 05:34 97.9 F 72 12 114/68 100 07/02/21 00:51 97.5 F 60 16 109/66 100 07/01/21 22:31 97.9 F 81 16 112/80 99 07/01/21 22:16 83 14 123/82 100 - Problem List (1) Acute pyelonephritis SNOMED Code(s): 95512004 ICD Code: N10 - ACUTE PYELONEPHRITIS Status: Acute Priority: High Current Visit: Yes Problem List Initiated/Reviewed/Updated: Yes Orders Last 24hrs: Active Orders 24 hr Category Date Time Status Admission Status [Patient Status] [ADT] Routine ADT 07/01/21 20:12 Active Activity as Tolerated [RC] BID Care 07/01/21 22:34 Active Regular Diet [DIET] Diet 07/02/21 Breakfast Active BLOOD CULTURE [MREF] Stat Lab 07/01/21 20:04 Received BLOOD CULTURE [MREF] Stat Lab 07/01/21 20:10 Received CULTURE URINE [MREF] Stat Lab 07/01/21 18:20 Received HYDROmorphone [Dilaudid] Med 07/01/21 22:33 Active 0.25 mg IVPUSH Q2H PRN Ketorolac [Toradol] Med 07/01/21 22:33 Active 30 mg IVPUSH Q6H PRN Ondansetron [Zofran] Med 07/01/21 22:32 Active 4 mg IVPUSH Q6H PRN Sodium Chloride 0.9% [Saline Flush] Med 07/01/21 18:13 Active 10 ml FLUSH ASDIRECTED PRN cefTRIAXone [Rocephin] 1 gm Med 07/01/21 19:30 Active Sodium Chloride 0.9% [Normal Saline AdvBag] 100 ml IV Q24H Blood Culture x2 Reflex Set [OM.PC] Stat Oth 07/01/21 19:18 Ordered Saline Lock Insert [OM.PC] Stat Oth 07/01/21 18:13 Ordered Code Status [Resuscitation Status] Routine Resus Stat 07/01/21 22:34 Ordered Medication Orders Hydromorphone HCl (Hydromorphone 0.5 Mg/0.5 Ml Syringe) 0.25 mg IVPUSH Q2H PRN PRN Reason: Pain Last Admin: 07/02/21 05:43 Dose: 0.25 mg Documented by: Admin: 07/02/21 00:48 Dose: 0.25 mg Documented by: Admin: 07/01/21 23:00 Dose: 0.25 mg Documented by: CHEIKH Ceftriaxone Sodium 1 gm/ (Sodium Chloride) 100 mls @ 200 mls/hr IV Q24H [facility] Last Admin: 07/01/21 19:42 Dose: 200 mls/hr Documented by: REGINA Ketorolac Tromethamine (Ketorolac 30 Mg/Ml Sdv) 30 mg IVPUSH Q6H PRN PRN Reason: Pain Stop: 07/06/21 22:34 Last Admin: 07/02/21 05:42 Dose: 30 mg Documented by: Admin: 07/01/21 22:47 Dose: 30 mg Documented by: CHEIKH Ondansetron HCl (Ondansetron 4 Mg/2 Ml Sdv) 4 mg IVPUSH Q6H PRN PRN Reason: Nausea/Vomiting Last Admin: 07/02/21 09:25 Dose: 4 mg Documented by: Admin: 07/02/21 01:44 Dose: 4 mg Documented by: ANNABELLE Sodium Chloride (Sodium Chloride 0.9% 10 Ml Syringe) 10 ml FLUSH ASDIRECTED PRN PRN Reason: Keep Vein Open Last Admin: 07/01/21 19:43 Dose: 10 ml Documented by: REGINA Assessment/Plan Comment:: 07/02/2021 Assessment: Bia is a 21yo female admitted on 07/01/2021 for acute right-sided pyelonephritis. She is afebrile, WBC count has returned to normal range, but continues to have right-sided abdominal and back pain. Abdominal CT showed mild inflammatory change around the right renal pelvis. Plan: * Continue IV ceftriaxone * Switch to oral antibiotics pending urine culture and sensitivity after 48 hours of IV ceftriaxone * Discontinue Dilaudid and switch to [place] and ibuprofen for pain control * Discontinue IV fluids * Discontinue I/Os * Labs: daily CBC, CMP; add procalcitonin today * Activity as tolerated * No VTE prophylaxis indicated due to score of 0. * Code status: full code <Yomi Fernando III - Last Filed: 07/02/21 11:07> H&P History of Present Illness - General Admit Problem/Dx: Admission Diagnosis/Problem Admission Diagnosis/Problem Pyelonephritis Exam - Vital Signs Vital Signs: Last Vital Signs Temp 97.5 F 07/02/21 09:12 Pulse 56 L 07/02/21 09:12 Resp 14 07/02/21 09:12 BP 110/65 07/02/21 09:12 Pulse Ox 100 07/02/21 09:12 - Patient Data Lab Results Last 24 hrs: Laboratory Results - last 24 hr 07/01/21 07/01/21 07/01/21 Range/Units 18:20 18:20 18:25 WBC 19.58 H (3.98-10.04) K/mm3 RBC 5.48 H (3.98-5.22) M/mm3 Hgb 15.7 D (11.2-15.7) gm/dl Hct 48.8 H (34.1-44.9) % MCV 89.1 (79.4-94.8) fl MCH 28.6 (25.6-32.2) pg MCHC 32.2 (32.2-35.5) g/dl RDW Std Deviation 44.0 (36.4-46.3) fL Plt Count 333 (182-369) K/mm3 MPV 9.8 (9.4-12.3) fl Neut % (Auto) 77.5 H (34.0-71.1) % Lymph % (Auto) 14.7 L (19.3-51.7) % [place] % (Auto) 7.0 (4.7-12.5) % Eos % (Auto) 0.1 L (0.7-5.8) Baso % (Auto) 0.3 (0.1-1.2) % Neut # (Auto) 15.18 H (1.56-6.13) K/mm3 Lymph # (Auto) 2.87 (1.18-3.74) K/mm3 [place] # (Auto) 1.38 H (0.24-0.36) K/mm3 Eos # (Auto) 0.02 L (0.04-0.36) K/mm3 Baso # (Auto) 0.05 (0.01-0.08) K/mm3 Sodium (136-145) mEq/L Potassium (3.5-5.1) mEq/L Chloride (98-107) mEq/L Carbon Dioxide (21-32) mEq/L Anion Gap (5-15) BUN (7-18) mg/dL Creatinine (0.55-1.02) mg/dL Est Cr Clr Drug Dosing Estimated GFR (MDRD) (>60) mL/min BUN/Creatinine Ratio (14-18) Glucose (70-99) mg/dL Calcium (8.5-10.1) mg/dL Magnesium (1.8-2.4) mg/dL Total Bilirubin (0.2-1.0) mg/dL AST (15-37) U/L ALT (14-59) U/L Alkaline Phosphatase (46-116) U/L C-Reactive Protein (<1.0) mg/dL Total Protein (6.4-8.2) g/dl Albumin (3.4-5.0) g/dl Globulin gm/dL Albumin/Globulin Ratio (1-2) Urine Color Yellow (Yellow) Urine Appearance Cloudy H (Clear) Urine pH 7.0 (5.0-8.0) Ur Specific [place] 1.025 (1.005-1.030) Urine Protein 3+ H (Negative) Urine Glucose (UA) Negative (Negative) Urine Ketones Negative (Negative) Urine Occult Blood 3+ H (Negative) Urine Nitrite Negative (Negative) Urine Bilirubin Negative (Negative) Urine Urobilinogen 0.2 (0.2-1.0) Ur Leukocyte Esterase 2+ H (Negative) Urine RBC 40-50 H (0-5) /hpf Urine WBC >100 H (0-5) /hpf Ur Squamous Epith Cells 0-5 (0-5) /hpf Urine Bacteria Moderate H (FEW) /hpf Urine Mucus Few (FEW) /hpf Urine HCG, Qual Negative (NEGATIVE) SARS-CoV-2 RNA (NATHALIE) (NEGATIVE) 07/01/21 07/01/21 07/02/21 Range/Units 18:25 19:55 06:03 WBC 9.12 (3.98-10.04) K/mm3 RBC 4.83 (3.98-5.22) M/mm3 Hgb 14.0 D (11.2-15.7) gm/dl Hct 43.4 (34.1-44.9) % MCV 89.9 (79.4-94.8) fl MCH 29.0 (25.6-32.2) pg MCHC 32.3 (32.2-35.5) g/dl RDW Std Deviation 44.3 (36.4-46.3) fL Plt Count 292 (182-369) K/mm3 MPV 9.8 (9.4-12.3) fl Neut % (Auto) 61.0 (34.0-71.1) % Lymph % (Auto) 28.3 (19.3-51.7) % [place] % (Auto) 9.5 (4.7-12.5) % Eos % (Auto) 0.7 (0.7-5.8) Baso % (Auto) 0.3 (0.1-1.2) % Neut # (Auto) 5.56 (1.56-6.13) K/mm3 Lymph # (Auto) 2.58 (1.18-3.74) K/mm3 [place] # (Auto) 0.87 H (0.24-0.36) K/mm3 Eos # (Auto) 0.06 (0.04-0.36) K/mm3 Baso # (Auto) 0.03 (0.01-0.08) K/mm3 Sodium 137 (136-145) mEq/L Potassium 4.2 (3.5-5.1) mEq/L Chloride 101 (98-107) mEq/L Carbon Dioxide 26 (21-32) mEq/L Anion Gap 14.2 (5-15) BUN 8 (7-18) mg/dL Creatinine 0.8 (0.55-1.02) mg/dL Est Cr Clr Drug Dosing TNP Estimated GFR (MDRD) > 60 (>60) mL/min BUN/Creatinine Ratio 10.0 L (14-18) Glucose 92 (70-99) mg/dL Calcium 9.6 (8.5-10.1) mg/dL Magnesium 2.0 (1.8-2.4) mg/dL Total Bilirubin 0.4 (0.2-1.0) mg/dL AST 20 (15-37) U/L ALT 27 (14-59) U/L Alkaline Phosphatase 80 (46-116) U/L C-Reactive Protein <0.2 (<1.0) mg/dL Total Protein 8.6 H (6.4-8.2) g/dl Albumin 4.7 (3.4-5.0) g/dl Globulin 3.9 gm/dL Albumin/Globulin Ratio 1.2 (1-2) Urine Color (Yellow) Urine Appearance (Clear) Urine pH (5.0-8.0) Ur Specific [place] (1.005-1.030) Urine Protein (Negative) Urine Glucose (UA) (Negative) Urine Ketones (Negative) Urine Occult Blood (Negative) Urine Nitrite (Negative) Urine Bilirubin (Negative) Urine Urobilinogen (0.2-1.0) Ur Leukocyte Esterase (Negative) Urine RBC (0-5) /hpf Urine WBC (0-5) /hpf Ur Squamous Epith Cells (0-5) /hpf Urine Bacteria (FEW) /hpf Urine Mucus (FEW) /hpf Urine HCG, Qual (NEGATIVE) SARS-CoV-2 RNA (NATHALIE) Negative (NEGATIVE) 07/02/21 Range/Units 06:03 WBC (3.98-10.04) K/mm3 RBC (3.98-5.22) M/mm3 Hgb (11.2-15.7) gm/dl Hct (34.1-44.9) % MCV (79.4-94.8) fl MCH (25.6-32.2) pg MCHC (32.2-35.5) g/dl RDW Std Deviation (36.4-46.3) fL Plt Count (182-369) K/mm3 MPV (9.4-12.3) fl Neut % (Auto) (34.0-71.1) % Lymph % (Auto) (19.3-51.7) % [place] % (Auto) (4.7-12.5) % Eos % (Auto) (0.7-5.8) Baso % (Auto) (0.1-1.2) % Neut # (Auto) (1.56-6.13) K/mm3 Lymph # (Auto) (1.18-3.74) K/mm3 [place] # (Auto) (0.24-0.36) K/mm3 Eos # (Auto) (0.04-0.36) K/mm3 Baso # (Auto) (0.01-0.08) K/mm3 Sodium 141 (136-145) mEq/L Potassium 3.6 (3.5-5.1) mEq/L Chloride 106 (98-107) mEq/L Carbon Dioxide 24 (21-32) mEq/L Anion Gap 14.6 (5-15) BUN 6 L (7-18) mg/dL Creatinine 0.8 (0.55-1.02) mg/dL Est Cr Clr Drug Dosing 98.41 Estimated GFR (MDRD) > 60 (>60) mL/min BUN/Creatinine Ratio 7.5 L (14-18) Glucose 91 (70-99) mg/dL Calcium 8.6 (8.5-10.1) mg/dL Magnesium 2.0 (1.8-2.4) mg/dL Total Bilirubin 0.5 (0.2-1.0) mg/dL AST 11 L (15-37) U/L ALT 20 (14-59) U/L Alkaline Phosphatase 66 (46-116) U/L C-Reactive Protein (<1.0) mg/dL Total Protein 6.7 (6.4-8.2) g/dl Albumin 3.5 (3.4-5.0) g/dl Globulin 3.2 gm/dL Albumin/Globulin Ratio 1.1 (1-2) Urine Color (Yellow) Urine Appearance (Clear) Urine pH (5.0-8.0) Ur Specific [place] (1.005-1.030) Urine Protein (Negative) Urine Glucose (UA) (Negative) Urine Ketones (Negative) Urine Occult Blood (Negative) Urine Nitrite (Negative) Urine Bilirubin (Negative) Urine Urobilinogen (0.2-1.0) Ur Leukocyte Esterase (Negative) Urine RBC (0-5) /hpf Urine WBC (0-5) /hpf Ur Squamous Epith Cells (0-5) /hpf Urine Bacteria (FEW) /hpf Urine Mucus (FEW) /hpf Urine HCG, Qual (NEGATIVE) SARS-CoV-2 RNA (NATHALIE) (NEGATIVE) Result Diagrams: 07/02/21 06:03 07/02/21 06:03 Sepsis Event Note - Focused Exam Vital Signs: Vital Signs Temp Pulse Resp BP Pulse Ox 07/02/21 09:12 97.5 F 56 L 14 110/65 100 07/02/21 05:34 97.9 F 72 12 114/68 100 07/02/21 00:51 97.5 F 60 16 109/66 100 - Problem List (1) Acute pyelonephritis SNOMED Code(s): 52487367 ICD Code: N10 - ACUTE PYELONEPHRITIS Status: Acute Priority: High Current Visit: Yes Problem List Initiated/Reviewed/Updated: Yes Orders Last 24hrs: Active Orders 24 hr Category Date Time Status Admission Status [Patient Status] [ADT] Routine ADT 07/01/21 20:12 Active Activity as Tolerated [RC] BID Care 07/01/21 22:34 Active Regular Diet [DIET] Diet 07/02/21 Breakfast Active BLOOD CULTURE [MREF] Stat Lab 07/01/21 20:04 Received BLOOD CULTURE [MREF] Stat Lab 07/01/21 20:10 Received CULTURE URINE [MREF] Stat Lab 07/01/21 18:20 Received PROCALCITONIN [REF] Routine Lab 07/02/21 06:03 Received Acetaminophen/HYDROcodone [[place] 325-10 MG] Med 07/02/21 10:16 Active 1 tab PO Q4H PRN Ketorolac [Toradol] Med 07/01/21 22:33 Active 30 mg IVPUSH Q6H PRN Ondansetron [Zofran] Med 07/01/21 22:32 Active 4 mg IVPUSH Q6H PRN Sodium Chloride 0.9% [Saline Flush] Med 07/01/21 18:13 Active 10 ml FLUSH ASDIRECTED PRN cefTRIAXone [Rocephin] 1 gm Med 07/01/21 19:30 Active Sodium Chloride 0.9% [Normal Saline AdvBag] 100 ml IV Q24H Blood Culture x2 Reflex Set [OM.PC] Stat Oth 07/01/21 19:18 Ordered Saline Lock Insert [OM.PC] Stat Oth 07/01/21 18:13 Ordered Code Status [Resuscitation Status] Routine Resus Stat 07/01/21 22:34 Ordered Medication Orders Hydrocodone Bitart/Acetaminophen (Acetaminophen/Hydrocodone 325-10 Mg Tab) 1 tab PO Q4H PRN PRN Reason: Abdominal Pain Last Admin: 07/02/21 10:34 Dose: 1 tab Documented by: CROW Ceftriaxone Sodium 1 gm/ (Sodium Chloride) 100 mls @ 200 mls/hr IV Q24H [facility] Last Admin: 07/01/21 19:42 Dose: 200 mls/hr Documented by: REGINA Ketorolac Tromethamine (Ketorolac 30 Mg/Ml Sdv) 30 mg IVPUSH Q6H PRN PRN Reason: Pain Stop: 07/06/21 22:34 Last Admin: 07/02/21 05:42 Dose: 30 mg Documented by: Admin: 07/01/21 22:47 Dose: 30 mg Documented by: CHEIKH Ondansetron HCl (Ondansetron 4 Mg/2 Ml Sdv) 4 mg IVPUSH Q6H PRN PRN Reason: Nausea/Vomiting Last Admin: 07/02/21 09:25 Dose: 4 mg Documented by: Admin: 07/02/21 01:44 Dose: 4 mg Documented by: ANNABELLE Sodium Chloride (Sodium Chloride 0.9% 10 Ml Syringe) 10 ml FLUSH ASDIRECTED PRN PRN Reason: Keep Vein Open Last Admin: 07/01/21 19:43 Dose: 10 ml Documented by: REGINA Assessment/Plan Comment:: Patient was seen, examined, and evaluated personally and I agree with the above findings, assessment, and plan. - Mortality Measure Prognosis:: Good
[2021-07-02] MEDS: Acetaminophen/HYDROcodone 325-10 MG Tab PO PRN ×3 (10:34→21:45)
[2021-07-02] MEDS: Sodium Chloride 0.9% 1,000 ML IV SCH (17:36)
[2021-07-02] MEDS: cefTRIAXone 1 GM in Sodium Chloride 0.9% 100 ML IV SCH (18:45)
[2021-07-03] MEDS: Ondansetron 4 MG/2 ML SDV IVPUSH PRN ×3 (05:26→18:36)
[2021-07-03] MEDS: Ketorolac 30 MG/ML SDV IVPUSH PRN ×3 (05:32→22:49)
[2021-07-03] MEDS: Sodium Chloride 0.9% 1,000 ML IV SCH ×2 (05:47→18:36)
[2021-07-03] MEDS: Acetaminophen/HYDROcodone 325-10 MG Tab PO PRN ×5 (05:49→23:47)
--- NOTE | 2021-07-03 11:45 | PCM.PN ---
<Mahogany Obregon - Last Filed: 07/03/21 12:16> - General Info Date of Service: 07/03/21 Admission Dx/Problem (Free Text): Admission Diagnosis/Problem Admission Diagnosis/Problem Pyelonephritis Subjective Update: Bia is a 21yo female admitted on 07/01/2021 for acute right-sided pyelonephritis. Today she feels better. She continues to have right flank and abdominal pain, but PRN [place] and Toradol are helping. She is no longer having dysuria, but urination is frequent secondary to IV fluids and increased oral intake. IV NS was restarted last evening after dysuria worsened and urinary output decreased per patient. She has not had a bowel movement since 07/01/2021 but typically does not have a BM every day. She is able to ambulate without assistance and appetite is good. Discussed patient's condition, treatment, and prognosis with her mother over speakerphone per patient request. Functional Status: Reports: Pain Controlled, Tolerating Diet, Ambulating, Urinating - Review of Systems General: Reports: No Symptoms HEENT: Reports: No Symptoms Pulmonary: Reports: No Symptoms Cardiovascular: Reports: No Symptoms Gastrointestinal: Reports: Abdominal Pain Genitourinary: Reports: Frequency, Flank Pain Musculoskeletal: Reports: No Symptoms Skin: Reports: No Symptoms Neurological: Reports: No Symptoms Psychiatric: Reports: No Symptoms - Patient Data Vitals - Most Recent: Last Vital Signs Temp 97.7 F 07/03/21 09:31 Pulse 55 L 07/03/21 09:31 Resp 14 07/03/21 09:31 BP 101/63 07/03/21 09:31 Pulse Ox 99 07/03/21 09:31 Weight - Most Recent: 148 lb 9.6 oz I&O - Last 24 Hours: Intake & Output 07/02/21 07/03/21 07/03/21 22:59 06:59 14:59 Intake Total 150 2146 Output Total 900 2075 Balance -750 71 Lab Results Last 24 Hours: Laboratory Results - last 24 hr 07/02/21 Range/Units 06:03 Procalcitonin <0.05 ng/mL Med Orders - Current: Current Medications Hydrocodone Bitart/Acetaminophen (Acetaminophen/Hydrocodone 325-10 Mg Tab) 1 ta b PO Q4H PRN PRN Reason: Abdominal Pain Last Admin: 07/03/21 10:20 Dose: 1 tab Documented by: Ceftriaxone Sodium 1 gm/ (Sodium Chloride) 100 mls @ 200 mls/hr IV Q24H [facility] Last Admin: 07/02/21 18:45 Dose: 200 mls/hr Documented by: Sodium Chloride (Normal Saline) 1,000 mls @ 75 mls/hr IV ASDIRECTED [facility] Last Admin: 07/03/21 05:47 Dose: 75 mls/hr Documented by: Ketorolac Tromethamine (Ketorolac 30 Mg/Ml Sdv) 30 mg IVPUSH Q6H PRN PRN Reason: Pain Stop: 07/06/21 22:34 Last Admin: 07/03/21 05:32 Dose: 30 mg Documented by: Ondansetron HCl (Ondansetron 4 Mg/2 Ml Sdv) 4 mg IVPUSH Q6H PRN PRN Reason: Nausea/Vomiting Last Admin: 07/03/21 11:28 Dose: 4 mg Documented by: Sodium Chloride (Sodium Chloride 0.9% 10 Ml Syringe) 10 ml FLUSH ASDIRECTED PRN PRN Reason: Keep Vein Open Last Admin: 07/01/21 19:43 Dose: 10 ml Documented by: Discontinued Medications Hydromorphone HCl (Hydromorphone 0.5 Mg/0.5 Ml Syringe) 0.5 mg IVPUSH ONETIME ONE Stop: 07/01/21 18:14 Last Admin: 07/01/21 19:42 Dose: 0.5 mg Documented by: Hydromorphone HCl (Hydromorphone 0.5 Mg/0.5 Ml Syringe) 0.5 mg IVPUSH ONETIME ONE Stop: 07/01/21 21:06 Last Admin: 07/01/21 21:13 Dose: 0.5 mg Documented by: Hydromorphone HCl (Hydromorphone 0.5 Mg/0.5 Ml Syringe) 0.25 mg IVPUSH Q2H PRN PRN Reason: Pain Last Admin: 07/02/21 05:43 Dose: 0.25 mg Documented by: Sodium Chloride (Normal Saline) 1,000 mls @ 999 mls/hr IV ONETIME ONE Stop: 07/01/21 19:13 Last Admin: 07/01/21 19:40 Dose: 999 mls/hr Documented by: Sodium Chloride (Normal Saline) 1,000 mls @ 75 mls/hr IV ASDIRECTED ANDRAE Last Admin: 07/01/21 23:06 Dose: 75 mls/hr Documented by: Ondansetron HCl (Ondansetron 4 Mg/2 Ml Sdv) 4 mg IVPUSH ONETIME ONE Stop: 07/01/21 18:14 Last Admin: 07/01/21 19:43 Dose: 4 mg Documented by: - Exam General: Alert, Oriented, Cooperative, No Acute Distress HEENT: Pupils Equal, Pupils Reactive, EOMI, Mucous Membr. Moist/[place] Lungs: Clear to Auscultation, Normal Respiratory Effort Cardiovascular: Regular Rate, Regular Rhythm GI/Abdominal Exam: Normal Bowel Sounds, Soft, No Organomegaly, No Distention, No Mass, Tender (to light and deep palpation in RLQ and RUQ) Back Exam: Normal Inspection, Full Range of Motion, CVA Tenderness (R) Extremities: Normal Inspection, Normal Range of Motion, Non-Tender, No Pedal Edema, Normal Capillary Refill Skin: Warm, Dry, Intact Neurological: No New Focal Deficit Psy/Mental Status: Alert, Normal Affect, Normal Mood - Patient Data Lab Results Last 24 hrs: Laboratory Results - last 24 hr 07/02/21 Range/Units 06:03 Procalcitonin <0.05 ng/mL Result Diagrams: 07/02/21 06:03 07/02/21 06:03 Sepsis Event Note - Evaluation Sepsis Screening Result: No Definite Risk - Focused Exam Vital Signs: Vital Signs Temp Pulse Resp BP Pulse Ox 07/03/21 09:31 97.7 F 55 L 14 101/63 99 07/03/21 05:43 97.5 F 56 L 16 97/48 L 99 - Problem List & Annotations (1) Acute pyelonephritis SNOMED Code(s): 83185999 Code(s): N10 - ACUTE PYELONEPHRITIS Status: Acute Priority: High Current Visit: Yes - Problem List Review Problem List Initiated/Reviewed/Updated: Yes - Plan Plan:: 07/02/2021 Assessment: Bia is a 21yo female admitted on 07/01/2021 for acute right-sided pyelonephritis. She is afebrile, WBC count has returned to normal range, but continues to have right-sided abdominal and back pain. Abdominal CT showed mild inflammatory change around the right renal pelvis. Plan: * Continue IV ceftriaxone * Switch to oral antibiotics pending urine culture and sensitivity after 48 hours of IV ceftriaxone * Discontinue Dilaudid and switch to [place] and ibuprofen for pain control * Discontinue IV fluids * Discontinue I/Os * Labs: daily CBC, CMP; add procalcitonin today * Activity as tolerated * No VTE prophylaxis indicated due to score of 0. * Code status: full code JANETH DANIEL Patient was seen, examined, and evaluated personally and I agree with the above findings, assessment, and plan. 07/03/2021 Assessment: Bia is a 21yo female admitted on 07/01/2021 for acute right-sided pyelonephritis. She continues to be afebrile and procalcitonin returned at <0.05. She continues to have right-sided abdominal and back pain with R CVA tenderness and tenderness to palpation of RLQ and RUQ. Plan: * Continue IV ceftriaxone * Switch to oral antibiotics pending urine culture and sensitivity * Continue [place] and ibuprofen for pain control * Continue normal saline at 75ml/hr IV * Labs: daily CBC, CMP * Activity as tolerated * No VTE prophylaxis indicated due to score of 0. * Code status: full code JANETH DANIEL <Yomi Fernando L III - Last Filed: 07/03/21 12:18> - Patient Data Vitals - Most Recent: Last Vital Signs Temp 97.7 F 07/03/21 09:31 Pulse 55 L 07/03/21 09:31 Resp 14 07/03/21 09:31 BP 101/63 07/03/21 09:31 Pulse Ox 99 07/03/21 09:31 I&O - Last 24 Hours: Intake & Output 07/02/21 07/03/21 07/03/21 22:59 06:59 14:59 Intake Total 150 2146 Output Total 900 2075 Balance -750 71 Lab Results Last 24 Hours: Laboratory Results - last 24 hr 07/02/21 Range/Units 06:03 Procalcitonin <0.05 ng/mL Med Orders - Current: Current Medications Hydrocodone Bitart/Acetaminophen (Acetaminophen/Hydrocodone 325-10 Mg Tab) 1 tab PO Q4H PRN PRN Reason: Abdominal Pain Last Admin: 07/03/21 10:20 Dose: 1 tab Documented by: Ceftriaxone Sodium 1 gm/ (Sodium Chloride) 100 mls @ 200 mls/hr IV Q24H [facility] Last Admin: 07/02/21 18:45 Dose: 200 mls/hr Documented by: Sodium Chloride (Normal Saline) 1,000 mls @ 75 mls/hr IV ASDIRECTED [facility] Last Admin: 07/03/21 05:47 Dose: 75 mls/hr Documented by: Ketorolac Tromethamine (Ketorolac 30 Mg/Ml Sdv) 30 mg IVPUSH Q6H PRN PRN Reason: Pain Stop: 07/06/21 22:34 Last Admin: 07/03/21 05:32 Dose: 30 mg Documented by: Ondansetron HCl (Ondansetron 4 Mg/2 Ml Sdv) 4 mg IVPUSH Q6H PRN PRN Reason: Nausea/Vomiting Last Admin: 07/03/21 11:28 Dose: 4 mg Documented by: Sodium Chloride (Sodium Chloride 0.9% 10 Ml Syringe) 10 ml FLUSH ASDIRECTED PRN PRN Reason: Keep Vein Open Last Admin: 07/01/21 19:43 Dose: 10 ml Documented by: Discontinued Medications Hydromorphone HCl (Hydromorphone 0.5 Mg/0.5 Ml Syringe) 0.5 mg IVPUSH ONETIME ONE Stop: 07/01/21 18:14 Last Admin: 07/01/21 19:42 Dose: 0.5 mg Documented by: Hydromorphone HCl (Hydromorphone 0.5 Mg/0.5 Ml Syringe) 0.5 mg IVPUSH ONETIME ONE Stop: 07/01/21 21:06 Last Admin: 07/01/21 21:13 Dose: 0.5 mg Documented by: Hydromorphone HCl (Hydromorphone 0.5 Mg/0.5 Ml Syringe) 0.25 mg IVPUSH Q2H PRN PRN Reason: Pain Last Admin: 07/02/21 05:43 Dose: 0.25 mg Documented by: Sodium Chloride (Normal Saline) 1,000 mls @ 999 mls/hr IV ONETIME ONE Stop: 07/01/21 19:13 Last Admin: 07/01/21 19:40 Dose: 999 mls/hr Documented by: Sodium Chloride (Normal Saline) 1,000 mls @ 75 mls/hr IV ASDIRECTED [facility] Last Admin: 07/01/21 23:06 Dose: 75 mls/hr Documented by: Ondansetron HCl (Ondansetron 4 Mg/2 Ml Sdv) 4 mg IVPUSH ONETIME ONE Stop: 07/01/21 18:14 Last Admin: 07/01/21 19:43 Dose: 4 mg Documented by: - Patient Data Lab Results Last 24 hrs: Laboratory Results - last 24 hr 07/02/21 Range/Units 06:03 Procalcitonin <0.05 ng/mL Result Diagrams: 07/02/21 06:03 07/02/21 06:03 Sepsis Event Note - Focused Exam Vital Signs: Vital Signs Temp Pulse Resp BP Pulse Ox 07/03/21 09:31 97.7 F 55 L 14 101/63 99 07/03/21 05:43 97.5 F 56 L 16 97/48 L 99 - Problem List & Annotations (1) Acute pyelonephritis SNOMED Code(s): 81768312 Code(s): N10 - ACUTE PYELONEPHRITIS Status: Acute Priority: High Current Visit: Yes - Problem List Review Problem List Initiated/Reviewed/Updated: Yes - My Orders Last 24 Hours: My Active Orders 07/02/21 17:30 Sodium Chloride 0.9% [Normal Saline] 1,000 ml IV ASDIRECTED 07/03/21 Lunch Regular Diet [DIET] 07/04/21 05:11 C-REACTIVE PROTEIN [CHEM] AM CBC WITH AUTO DIFF [HEME] AM CMP [COMPREHENSIVE METABOLIC PN,CMP] [CHEM] AM 07/04/21 06:00 VITAMIN D,25-HYDROXY [CHEM] Routine - Plan Plan:: Patient was seen, examined, and evaluated personally and I agree with the above findings, assessment, and plan.
[2021-07-03] MEDS: cefTRIAXone 1 GM in Sodium Chloride 0.9% 100 ML IV SCH (19:42)
[2021-07-04] MEDS: diphenhydrAMINE 25 MG Cap PO PRN ×2 (00:29→04:55)
[2021-07-04] MEDS: Acetaminophen/HYDROcodone 325-10 MG Tab PO PRN ×2 (03:52→09:20)
[2021-07-04] MEDS: Ketorolac 30 MG/ML SDV IVPUSH PRN (04:50)
[2021-07-04] MEDS ORDERED: Cholecalciferol (Vitamin D3) 5,000 UNIT Cap PO SCH (09:00)
[2021-07-04] MEDS ORDERED: Sulfamethoxazole/Trimethoprim 800-160 MG Tab PO SCH (09:00)
[2021-07-04] MEDS: Sodium Chloride 0.9% 1,000 ML IV SCH (09:02)
--- NOTE | 2021-07-04 11:06 | PCM.DCSUM1 ---
Discharge Summary - Hospital Course HPI Initial Comments: Bia is a 21yo white female who presented to the ED on the evening of 07/01/2021 due to right back and abdominal pain. This pain started about 10 days ago and became "unbearable" which prompted the ED visit. Associated symptoms include hematuria, dysuria, fever 7 and 2 days ago, chills, myalgias, nausea, diarrhea, and decreased appetite. She is currently experiencing nausea and right abdomen/back pain. She denies any headache, SOB, chest pain, or rash. She describes a cramping character to the pain which is worse with breathing and touching the area. She has tried ibuprofen and Azo tablets without relief. test was negative and she still has her appendix. She has a nexplanon for contraception. She had a UTI diagnosed 06/01/2021 for which she was prescribed macrobid. She gets approximately 4 UTIs per year. She denies any history of smoking or heavy alcohol use. Assessment/Plan Comment:: 07/02/2021 Assessment: Bia is a 21yo female admitted on 07/01/2021 for acute right-sided pyelonephritis. She is afebrile, WBC count has returned to normal range, but continues to have right-sided abdominal and back pain. Abdominal CT showed mild inflammatory change around the right renal pelvis. Plan: * Continue IV ceftriaxone * Switch to oral antibiotics pending urine culture and sensitivity after 48 hours of IV ceftriaxone * Discontinue Dilaudid and switch to [place] and ibuprofen for pain control * Discontinue IV fluids * Discontinue I/Os * Labs: daily CBC, CMP; add procalcitonin today * Activity as tolerated * No VTE prophylaxis indicated due to score of 0. * Code status: full code Diagnosis: Stroke: No - Discharge Data Discharge Date: 07/04/21 Discharge Disposition: Home, Self-Care 01 Condition: Good - Referral to Home Health Primary Care Physician: Sharon Lujan NP - Discharge Diagnosis/Problem(s) (1) Acute pyelonephritis SNOMED Code(s): 01696869 ICD Code: N10 - ACUTE PYELONEPHRITIS Status: Acute Priority: High Current Visit: Yes (2) Vitamin D deficiency SNOMED Code(s): 91157705 ICD Code: E55.9 - VITAMIN D DEFICIENCY, UNSPECIFIED Status: Acute Current Visit: Yes - Patient Summary/Data Hospital Course: 07/02/2021 Assessment: Bia is a 21yo female admitted on 07/01/2021 for acute right-sided pyelonephritis. She is afebrile, WBC count has returned to normal range, but continues to have right-sided abdominal and back pain. Abdominal CT showed mild inflammatory change around the right renal pelvis. Plan: * Continue IV ceftriaxone * Switch to oral antibiotics pending urine culture and sensitivity after 48 hours of IV ceftriaxone * Discontinue Dilaudid and switch to [place] and ibuprofen for pain control * Discontinue IV fluids * Discontinue I/Os * Labs: daily CBC, CMP; add procalcitonin today * Activity as tolerated * No VTE prophylaxis indicated due to score of 0. * Code status: full code MARÍA, 3 Patient was seen, examined, and evaluated personally and I agree with the above findings, assessment, and plan. 07/03/2021 Assessment: Bia is a 21yo female admitted on 07/01/2021 for acute right-sided pyelonephritis. She continues to be afebrile and procalcitonin returned at <0.05. She continues to have right-sided abdominal and back pain with R CVA tenderness and tenderness to palpation of RLQ and RUQ. Plan: * Continue IV ceftriaxone * Switch to oral antibiotics pending urine culture and sensitivity * Continue [place] and ibuprofen for pain control * Continue normal saline at 75ml/hr IV * Labs: daily CBC, CMP * Activity as tolerated * No VTE prophylaxis indicated due to score of 0. * Code status: full code MARÍA, 3 07/04/2021 Culture results returned as Staphylococcus Saprophyticus. White count did increase slightly, but not significantly to 10.67. She continues to have some right lower quadrant discomfort. Procalcitonin was less than 0.05. Vitamin D was 22.8. She is ready to go home with follow-up with her primary care provider. She will go home on Bactrim double strength. Cultures were not confirmed with sensitivities sent Staphylococcus saprophyticus is generally sensitive to Bactrim. - Patient Instructions Diet: Usual Diet as Tolerated Activity: As Tolerated Driving: May Drive Today Showering/Bathing: May Shower Other/Special Instructions: Follow up with PCP next week. - Discharge Plan *PRESCRIPTION DRUG MONITORING PROGRAM REVIEWED*: No *COPY OF PRESCRIPTION DRUG MONITORING REPORT IN PATIENT JOO: No Prescriptions/Med Rec: Hydrocodone/Acetaminophen [HYDROcodone-Acetaminophen 5-325 MG] 1 each PO Q4H PRN #5 tab PRN Reason: Pain (Moderate 4-6) Sulfamethoxazole/Trimethoprim [Septra DS] 1 tab PO BID #10 tablet Cholecalciferol (Vitamin D3) [Vitamin D3] 5,000 unit PO DAILY #30 cap Home Medications: Home Meds Etonogestrel [Nexplanon] 68 mg IMPLANT ASDIRECTED 07/01/21 [History] Amphetamine/Dextroamphetamine [Adderall XR] 30 mg PO BID 07/02/21 [History] Cholecalciferol (Vitamin D3) [Vitamin D3] 5,000 unit PO DAILY #30 cap 07/04/21 [Rx] Hydrocodone/Acetaminophen [HYDROcodone-Acetaminophen 5-325 MG] 1 each PO Q4H PRN #5 tab 07/04/21 [Rx] Sulfamethoxazole/Trimethoprim [Septra DS] 1 tab PO BID #10 tablet 07/04/21 [Rx] Oxygen Therapy Mode: Room Air Patient Handouts: Pyelonephritis, Adult, Sepsis, Self Care, Adult Forms: ED Department Discharge Referrals: Sharon Lujan NP [Primary Care Provider] - 07/11/21 1:00 pm (please check in at 12:45) - Discharge Summary/Plan Comment DC Time >30 min.: No Total # of Minutes for Discharge Time: 25 Discharge Summary/Plan Comment: Follow-up with primary care provider next week. - General Info Date of Service: 07/04/21 Admission Dx/Problem (Free Text: Admission Diagnosis/Problem Admission Diagnosis/Problem Pyelonephritis Subjective Update: Bia continues to complain of right lower quadrant abdominal pain. She has been afebrile. Culture results are consistent with Staphylococcus saprophyticus. She has had 3 days of Rocephin. We are switching her to Bactrim double strength 1 tab twice daily. Functional Status: Reports: Pain Controlled - Review of Systems General: Reports: No Symptoms HEENT: Reports: No Symptoms Pulmonary: Reports: No Symptoms Cardiovascular: Reports: No Symptoms Gastrointestinal: Reports: Abdominal Pain - Patient Data Vitals - Most Recent: Last Vital Signs Temp 98.8 F 07/04/21 08:43 Pulse 57 L 07/04/21 08:43 Resp 16 07/04/21 08:43 BP 102/52 L 07/04/21 08:43 Pulse Ox 99 07/04/21 08:43 Weight - Most Recent: 148 lb 1.6 oz I&O - Last 24 hours: Intake & Output 07/03/21 07/04/21 07/04/21 22:59 06:59 14:59 Intake Total 1220 2706 Balance 1220 2706 Lab Results - Last 24 hrs: Laboratory Results - last 24 hr 07/04/21 07/04/21 07/04/21 Range/Units 05:04 05:04 05:04 WBC 10.67 H (3.98-10.04) K/mm3 RBC 4.43 (3.98-5.22) M/mm3 Hgb 12.9 (11.2-15.7) gm/dl Hct 40.1 (34.1-44.9) % MCV 90.5 (79.4-94.8) fl MCH 29.1 (25.6-32.2) pg MCHC 32.2 (32.2-35.5) g/dl RDW Std Deviation 43.4 (36.4-46.3) fL Plt Count 277 (182-369) K/mm3 MPV 9.8 (9.4-12.3) fl Neut % (Auto) 55.6 (34.0-71.1) % Lymph % (Auto) 34.3 (19.3-51.7) % [place] % (Auto) 7.6 (4.7-12.5) % Eos % (Auto) 1.8 (0.7-5.8) Baso % (Auto) 0.4 (0.1-1.2) % Neut # (Auto) 5.94 (1.56-6.13) K/mm3 Lymph # (Auto) 3.66 (1.18-3.74) K/mm3 [place] # (Auto) 0.81 H (0.24-0.36) K/mm3 Eos # (Auto) 0.19 (0.04-0.36) K/mm3 Baso # (Auto) 0.04 (0.01-0.08) K/mm3 Sodium 141 (136-145) mEq/L Potassium 3.7 (3.5-5.1) mEq/L Chloride 109 H (98-107) mEq/L Carbon Dioxide 21 (21-32) mEq/L Anion Gap 14.7 (5-15) BUN 7 (7-18) mg/dL Creatinine 0.8 (0.55-1.02) mg/dL Est Cr Clr Drug Dosing 98.41 mL/min Estimated GFR (MDRD) > 60 (>60) mL/min BUN/Creatinine Ratio 8.8 L (14-18) Glucose 105 H (70-99) mg/dL Calcium 8.4 L (8.5-10.1) mg/dL Total Bilirubin 0.1 L (0.2-1.0) mg/dL AST 15 (15-37) U/L ALT 22 (14-59) U/L Alkaline Phosphatase 59 (46-116) U/L C-Reactive Protein < 0.2 (<1.0) mg/dL Total Protein 5.8 L (6.4-8.2) g/dl Albumin 3.1 L (3.4-5.0) g/dl Globulin 2.7 gm/dL Albumin/Globulin Ratio 1.2 (1-2) Vitamin D 25-Hydroxy 22.8 L (30.0-100.0) ng/ml REYMUNDO Results - Last 24 hrs: Microbiology 07/01/21 18:20 Urine Culture - Final Urine Staphylococcus Saprophyticus Mixed Gram Positive Addl Isol 07/01/21 20:10 Blood Culture - Preliminary Blood - Venous - Lab Draw 07/01/21 20:04 Blood Culture - Preliminary Blood - Venous Med Orders - Current: Current Medications Hydrocodone Bitart/Acetaminophen (Acetaminophen/Hydrocodone 325-10 Mg Tab) 1 tab PO Q4H PRN PRN Reason: Abdominal Pain Last Admin: 07/04/21 09:20 Dose: 1 tab Documented by: Cholecalciferol (Cholecalciferol (Vitamin D3) 5,000 Unit Cap) 5,000 unit PO DAILY ANDRAE Last Admin: 07/04/21 09:03 Dose: 5,000 unit Documented by: Diphenhydramine HCl (Diphenhydramine 25 Mg Cap) 25 mg PO Q4H PRN PRN Reason: Itching Last Admin: 07/04/21 04:55 Dose: 25 mg Documented by: Sodium Chloride (Normal Saline) 1,000 mls @ 75 mls/hr IV ASDIRECTED ANDRAE Last Admin: 07/04/21 09:02 Dose: 75 mls/hr Documented by: Ketorolac Tromethamine (Ketorolac 30 Mg/Ml Sdv) 30 mg IVPUSH Q6H PRN PRN Reason: Pain Stop: 07/06/21 22:34 Last Admin: 07/04/21 04:50 Dose: 30 mg Documented by: Ondansetron HCl (Ondansetron 4 Mg/2 Ml Sdv) 4 mg IVPUSH Q6H PRN PRN Reason: Nausea/Vomiting Last Admin: 07/03/21 18:36 Dose: 4 mg Documented by: Sodium Chloride (Sodium Chloride 0.9% 10 Ml Syringe) 10 ml FLUSH ASDIRECTED PRN PRN Reason: Keep Vein Open Last Admin: 07/01/21 19:43 Dose: 10 ml Documented by: Trimethoprim/Sulfamethoxazole (Sulfamethoxazole/Trimethoprim 800-160 Mg Tab) 1 tab PO BID [facility] Last Admin: 07/04/21 09:04 Dose: 1 tab Documented by: Discontinued Medications Hydromorphone HCl (Hydromorphone 0.5 Mg/0.5 Ml Syringe) 0.5 mg IVPUSH ONETIME ONE Stop: 07/01/21 18:14 Last Admin: 07/01/21 19:42 Dose: 0.5 mg Documented by: Hydromorphone HCl (Hydromorphone 0.5 Mg/0.5 Ml Syringe) 0.5 mg IVPUSH ONETIME ONE Stop: 07/01/21 21:06 Last Admin: 07/01/21 21:13 Dose: 0.5 mg Documented by: Hydromorphone HCl (Hydromorphone 0.5 Mg/0.5 Ml Syringe) 0.25 mg IVPUSH Q2H PRN PRN Reason: Pain Last Admin: 07/02/21 05:43 Dose: 0.25 mg Documented by: Sodium Chloride (Normal Saline) 1,000 mls @ 999 mls/hr IV ONETIME ONE Stop: 07/01/21 19:13 Last Admin: 07/01/21 19:40 Dose: 999 mls/hr Documented by: Ceftriaxone Sodium 1 gm/ (Sodium Chloride) 100 mls @ 200 mls/hr IV Q24H [facility] Last Admin: 07/03/21 19:42 Dose: 200 mls/hr Documented by: Sodium Chloride (Normal Saline) 1,000 mls @ 75 mls/hr IV ASDIRECTED ANDRAE Last Admin: 07/01/21 23:06 Dose: 75 mls/hr Documented by: Ondansetron HCl (Ondansetron 4 Mg/2 Ml Sdv) 4 mg IVPUSH ONETIME ONE Stop: 07/01/21 18:14 Last Admin: 07/01/21 19:43 Dose: 4 mg Documented by: - Exam Quality Assessment: Denies: Supplemental Oxygen General: Reports: Alert, Oriented HEENT: Reports: Pupils Equal, Mucous Membr. Moist/[place] Neck: Reports: Supple Lungs: Reports: Clear to Auscultation, Normal Respiratory Effort Cardiovascular: Reports: Regular Rate, Regular Rhythm GI/Abdominal Exam: Normal Bowel Sounds, Soft, Tender (Mild right-sided tenderness without guarding or rebound.) Extremities: Normal Inspection, Normal Range of Motion, Non-Tender, No Pedal Edema, Normal Capillary Refill Skin: Reports: Warm, Dry, Intact Neurological: Reports: No New Focal Deficit Psy/Mental Status: Reports: Alert, Normal Affect, Normal Mood
== END 2021-07-04 12:45 | disposition home or self-care (01) | DRG 463 ==
LOC: JD.ED 17:42 → JD.MS 20:12 → OBSVTOIN 07-02 11:07 → JD.OB 07-03 11:30 → JD.MS 07-03 11:30
PROVIDERS: ADMIT Family Medicine; ATTEND Family Medicine
DX: N12 Tubulo-interstitial nephritis, not specified as acute or chronic (principal); E55.9 Vitamin D deficiency, unspecified; Z79.899 Other long term (current) drug therapy; B95.8 Unspecified staphylococcus as the cause of diseases classified elsewhere; Z20.822 Contact with and (suspected) exposure to COVID-19
CPT/HCPCS: 36415; 74176; 74176-26; 80053; 81001; 81025; 82306; 83735; 84145; 85025; 86140; 87040; 87086; 96365; 96375; 96376; 99222; 99232; 99238; 99285-25; A9270-GY; G0378; J0696; J1170; J1885; J2405; J7030; U0002

== ENCOUNTER 2022-12-18 09:58 | Emergency (ER) | payer BC ==
[2022-12-18] MEDS ORDERED: Sodium Chloride 0.9% 10 ML Syringe FLUSH PRN (10:18)
[2022-12-18] MEDS ORDERED: Ketorolac 30 MG/ML SDV IVPUSH ONE (10:19)
[2022-12-18] MEDS ORDERED: HYDROmorphone 0.5 MG/0.5 ML Syringe IVPUSH ONE ×2 (10:20→12:33)
[2022-12-18] MEDS ORDERED: Ondansetron 4 MG/2 ML SDV IVPUSH ONE (10:20)
[2022-12-18] MEDS ORDERED: Sodium Chloride 0.9% 1,000 ML IV SCH (10:30)
[2022-12-18] MEDS ORDERED: cefTRIAXone 2 GM in Sodium Chloride 0.9% 100 ML IV ONE (12:31)
== END 2022-12-18 13:20 | disposition home or self-care (01) ==
LOC: JD.ED 09:58
DX: N39.0 Urinary tract infection, site not specified (principal); N30.00 Acute cystitis without hematuria
CPT/HCPCS: 36415; 74176; 80053; 81001; 83690; 84703; 85025; 87086; 96361; 96365; 96375; 96376; 99284; J0696; J1170; J1885; J2405; J3490; J7030

== ENCOUNTER 2023-03-08 19:34 | Emergency (ER) | payer BC ==
[2023-03-08] MEDS ORDERED: Sodium Chloride 0.9% 1,000 ML IV ONE (20:16)
[2023-03-08] MEDS ORDERED: Ondansetron 4 MG/2 ML SDV IVPUSH ONE (20:16)
[2023-03-08] MEDS ORDERED: HYDROmorphone 0.5 MG/0.5 ML Syringe IVPUSH ONE (20:16)
[2023-03-08 20:45] LABS: BASOPHILS ABSOLUTE AUTO 0.04 K/mm3 (0.01-0.08); BASOPHILS PERCENT AUTO 0.2 % (0.1-1.2); EOSINOPHILS ABSOLUTE AUTO 0.04 K/mm3 (0.04-0.36); EOSINOPHILS PERCENT AUTO 0.2 (0.7-5.8); HEMATOCRIT 45.5 % (34.1-44.9); HEMOGLOBIN 15.2 gm/dl (11.2-15.7); IMMATURE GRAN ABSOLUTE AUTO 0.04 K/mm3 (0.00-0.10); IMMATURE GRAN PERCENT AUTO 0.2 % (<=1.0); LYMPHOCYTES PERCENT AUTO 11.1 % (19.3-51.7); MEAN CORPUSCULAR HEMOGLOBIN 29.1 pg (25.6-32.2); MEAN CORPUSCULAR HGB CONC 33.4 g/dl (32.2-35.5); MEAN CORPUSCULAR VOLUME 87.2 fl (79.4-94.8); MEAN PLATELET VOLUME 9.5 fl (9.4-12.3); MONOCYTES PERCENT AUTO 6.6 % (4.7-12.5); NEUTROPHILS ABSOLUTE AUTO 14.73 K/mm3 (1.56-6.13); NEUTROPHILS PERCENT AUTO 81.7 % (34.0-71.1); PLATELET COUNT,PLT 322 K/mm3 (182-369); RED BLOOD CELL COUNT 5.22 M/mm3 (3.98-5.22); WHITE BLOOD CELL COUNT,WBC 18.05 K/mm3 (3.98-10.04)
[2023-03-08 20:53] LABS: APPEARANCE,URINE SLT CLOUDY (Clear); BILIRUBIN,URINE 1+ (Negative); COLOR,URINE AMBER (Yellow); GLUCOSE,URINE TRACE (Negative); KETONES,URINE 3+ (Negative); LEUKOCYTE ESTERASE,URINE 3+ (Negative); NITRITE,URINE POSITIVE (Negative); OCCULT BLOOD,URINE 3+ (Negative); PH,URINE 5.5 (5.0-8.0); PROTEIN,URINE 3+ (Negative)
[2023-03-08 21:05] LABS: A/G RATIO 1.2 (1-2); ALBUMIN 4.4 g/dl (3.4-5.0); ANION GAP 14.3 (5-15); BILIRUBIN TOTAL 0.8 mg/dL (0.2-1.0); BUN/CREATININE RATIO 6.7 (14-18); CALCIUM 9.6 mg/dL (8.5-10.1); CREATININE 0.9 mg/dL (0.55-1.02); EST CRCL DRUG DOSING (CG) 86.73 mL/min; POTASSIUM,K 3.3 mEq/L (3.5-5.1); PROTEIN TOTAL,TP 8.2 g/dl (6.4-8.2)
[2023-03-08 21:31] LABS: RBC,URINE >100 /hpf (0-5)
[2023-03-08 21:32] LABS: BACTERIA,URINE MODERATE /hpf (FEW); MUCUS,URINE RARE /hpf (FEW); RENAL EPITHELIAL CELLS,URINE 0-5 /hpf (0-5); SQUAMOUS EPITHELIAL CELLS,UR 0-5 /hpf (0-5); WBC CLUMPS,URINE FEW /hpf (NOT SEEN); WBC,URINE >100 /hpf (0-5)
[2023-03-08] MEDS ORDERED: Levofloxacin 750 MG Tab PO ONE (22:45)
== END 2023-03-08 23:17 | disposition home or self-care (01) ==
LOC: JD.ED 19:34
DX: N12 Tubulo-interstitial nephritis, not specified as acute or chronic (principal); Z86.16 Personal history of COVID-19; Z79.899 Other long term (current) drug therapy
CPT/HCPCS: 36415; 74176; 80053; 81001; 85025; 96374; 96375; 99284; A9270; J1170; J2405; J7030